=== PATIENT | male | born 1945 | race Caucasian/White ===

== ENCOUNTER 2018-11-13 11:02 | Emergency (ER) | payer MEDICARE ==
[~2018-11-13] VITALS: Ht 175.3 cm; Wt 81.6 kg
[~2018-11-13 11:02] MED LIST: ?BP MED; AMLO-79 PO; ASPI-587 PO; AZEL137S4 NS; AZIT-21 PO; CIPR-225 PO; DOXY100C2 PO; FLUT16SP22 NS; GLIP2.5T15 PO; MECL12.579 PO; MELO-198 PO; METF-380 PO; METH4TAB PO; OXYC-12 PO; PRD20T PO; SIMV10TA3 PO; SULF1TAB35 PO; TRIA16.5 NS; [UNRECOGNIZED DRUG - REMARK]; [UNRECOGNIZED DRUG - REMARK]
[2018-11-13 11:46] LABS: BASOPHILS % (AUTO) 1 % (0-10); EOSINOPHILS # (AUTO) 0.2 10^3/uL (0.0-0.3); EOSINOPHILS % (AUTO) 2 % (0-10); HEMATOCRIT 40 % (40-54); HEMOGLOBIN 14.4 G/DL (13.3-17.7); LYMPHOCYTES # (AUTO) 4.2 X 10^3 (1.0-4.0); LYMPHOCYTES % (AUTO) 48 % (12-44); MEAN CORPUSCULAR HEMOGLOBIN 32 PG (25-34); MEAN CORPUSCULAR HGB CONC 36 G/DL (32-36); MEAN CORPUSCULAR VOLUME 88 FL (80-99); MEAN PLATELET VOLUME 9.3 FL (7.4-10.4); MONOCYTES # (AUTO) 0.8 X 10^3 (0.0-1.0); MONOCYTES % (AUTO) 9 % (0-12); NEUTROPHILS # (AUTO) 3.7 X 10^3 (1.8-7.8); NEUTROPHILS % (AUTO) 41 % (42-75); PLATELET COUNT 219 10^3/uL (130-400); RED CELL DISTRIBUTION WIDTH 14.5 % (10.0-14.5); WHITE BLOOD COUNT 8.9 10^3/uL (4.3-11.0)
--- NOTE | 2018-11-13 11:47 | ED Respiratory ---
General Chief Complaint: Respiratory Problems Stated Complaint: SOB Nursing Triage Note: PT AMB TO [facility] WITH COMLPAINT OF SOA FOR SIX MONTHS. STATES HAS NOT TALKED TO PCP ABOUT SYMPTOMS. STATES TODAY HE BECAME TIRED OF IT AND DECIDED HE WANTED TO SEE WHAT WAS GOING. History of Present Illness Date Seen by Provider: Nov 13, 2018 Time Seen by Provider: 11:30 Initial Comments 73-year-old male reports shortness of breath for at least 6 months, no change today in his symptoms. He reports smoking from the age of approximately 18 until August 2018. He smoked anywhere from half a pack to 1 pack per day. He is continuing to be around secondhand smoke from his sister who lives in skilled nursing. He denies a history of COPD, emphysema or chronic bronchitis. He has no history of seasonal allergies. He is not on any inhalers. He denies any chest pain. His shortness of breath is only with exertion, he continues to exercise and do weight work daily. He performs all of his own ADLs with no assistance. He has never used oxygen. He has never discussed these symptoms with his primary care provider. He states that he can walk for approximately 5 minutes before becoming short of air, if he rests for a few moments his symptoms improve. Timing/Duration: intermittent Severity: mild Prior Episodes/Possible Cause: occasional episodes Modifying Factors: Improves With Rest Associated Symptoms: cough (nonproductive); No nasal congestion, No nasal drainage; shortness of breath; No sinus infection, No sore throat, No wheezing Allergies and Home Medications Allergies Coded Allergies: No Known Drug Allergies (Unverified , 04/03/12) Home Medications Amlodipine Besylate/Benazepril 1 Each Capsule, 1 EACH PO DAILY, (Reported) Aspirin 81 Mg Tablet.dr, 81 MG PO DAILY, (Reported) Ciprofloxacin HCl 500 Mg Tablet, 500 MG PO BID Prescribed by: LILI CARPIO on 01/07/151126 Meloxicam 7.5 Mg Tablet, 1 EACH PO BID, (Reported) Simvastatin 10 Mg Tablet, 10 MG PO DAILY, (Reported) Sulfamethoxazole/Trimethoprim 1 Each Tablet, 1 EACH PO BID Prescribed by: LILI CARPIO on 01/07/157 Patient Home Medication List Home Medication List Reviewed: Yes Review of Systems Review of Systems Constitutional: no symptoms reported, see HPI Respiratory: see HPI, cough, dyspnea on exertion; No hemoptysis, No orthopnea, No phlegm; short of breath; No stridor, No wheezing, No other All Other Systems Reviewed Negative Unless Noted: Yes Past Rieqkjg-Uohiep-Orjris Hx Past Med/Social Hx: Reviewed Nursing Past Med/Soc Hx Patient Social History Alcohol Use: Occasionally Uses Recreational Drug Use: No Smoking Status: Former Smoker Type Used: Cigarettes Former Smoker, Quit: Sep 06, 2018 Recent Foreign Travel: No Contact w/Someone Who Travel: No Recent Infectious Disease Expo: No Physical Abuse: No Sexual Abuse: No Mistreated: No Fear: No Immunizations Up To Date Tetanus Booster (TDap): Unknown Date of Pneumonia Vaccine: Jan 02, 2014 Date of Influenza Vaccine: Nov 28, 2014 Past Medical History Surgeries: Yes (PILONDIAL CYST FROM TAILBONE, BILAT CARPAL TUNNEL, CATARACTS) Eye Surgery, Orthopedic Respiratory: No Cardiac: Yes Hypertension Neurological: No Reproductive Disorders: No Gastrointestinal: No Musculoskeletal: No Endocrine: Yes Diabetes, Non-Insulin dep Cataract Cancer: No Psychosocial: No Integumentary: No Blood Disorders: No Physical Exam Vital Signs - First Documented 11/13/18 11:16 Temp 99.2 Pulse 92 Resp 16 B/P (MAP) 136/79 (98) Pulse Ox 98 O2 Delivery Room Air Capillary Refill : Less Than 3 Seconds Height: 5'9.00" Weight: 180lbs. oz. 81.379908uc; BMI Method:Stated General Appearance: WD/WN, no apparent distress Eyes: Bilateral Eye Normal Inspection, Bilateral Eye PERRL, Bilateral Eye EOMI HEENT: PERRL/EOMI, normal ENT inspection, TMs normal, pharynx normal Neck: non-tender, full range of motion, supple, normal inspection Respiratory: chest non-tender, lungs clear, normal breath sounds, no respiratory distress, no accessory muscle use Cardiovascular: normal peripheral pulses, regular rate, rhythm, no edema Gastrointestinal: normal bowel sounds, non tender, soft Neurologic/Psychiatric: no motor/sensory deficits, alert, normal mood/affect, oriented x 3 Skin: normal color, warm/dry Progress/Results/Core Measures Suspected Sepsis Recent Fever Within 48 Hours: No Infection Criteria Present: None New/Unexplained Altered Menta: No Sepsis Screen: No Definite Risk SIRS Temperature:99.2 Pulse: 92 Respiratory Rate: 16 Laboratory Tests 11/13/18 11:15: White Blood Count 8.9 Blood Pressure 136 /79 Mean: 98 Laboratory Tests 11/13/18 11:15: Creatinine 1.77H, Platelet Count 219, Total Bilirubin 0.6 Results/Orders Lab Results Laboratory Tests Test 11/13/18 11:15 Range/Units White Blood Count 8.9 4.3-11.0 10^3/uL Red Blood Count 4.57 4.35-5.85 10^6/uL Hemoglobin 14.4 13.3-17.7 G/DL Hematocrit 40 40-54 % Mean Corpuscular Volume 88 80-99 FL Mean Corpuscular Hemoglobin 32 25-34 PG Mean Corpuscular Hemoglobin Concent 36 32-36 G/DL Red Cell Distribution Width 14.5 10.0-14.5 % Platelet Count 219 130-400 10^3/uL Mean Platelet Volume 9.3 7.4-10.4 FL Neutrophils (%) (Auto) 41 L 42-75 % Lymphocytes (%) (Auto) 48 H 12-44 % Monocytes (%) (Auto) 9 0-12 % Eosinophils (%) (Auto) 2 0-10 % Basophils (%) (Auto) 1 0-10 % Neutrophils # (Auto) 3.7 1.8-7.8 X 10^3 Lymphocytes # (Auto) 4.2 H 1.0-4.0 X 10^3 Monocytes # (Auto) 0.8 0.0-1.0 X 10^3 Eosinophils # (Auto) 0.2 0.0-0.3 10^3/uL Basophils # (Auto) 0.0 0.0-0.1 10^3/uL Sodium Level 130 L 135-145 MMOL/L Potassium Level 3.7 3.6-5.0 MMOL/L Chloride Level 98 98-107 MMOL/L Carbon Dioxide Level 20 L 21-32 MMOL/L Anion Gap 12 5-14 MMOL/L Blood Urea Nitrogen 21 H 7-18 MG/DL Creatinine 1.77 H 0.60-1.30 MG/DL Estimat Glomerular Filtration Rate 38 BUN/Creatinine Ratio 12 Glucose Level 117 H 70-105 MG/DL Calcium Level 10.1 8.5-10.1 MG/DL Corrected Calcium 8.5-10.1 MG/DL Total Bilirubin 0.6 0.1-1.0 MG/DL Aspartate Amino Transf (AST/SGOT) 28 5-34 U/L Alanine Aminotransferase (ALT/SGPT) 46 0-55 U/L Alkaline Phosphatase 52 40-136 U/L Troponin I < 0.028 <0.028 NG/ML B-Type Natriuretic Peptide 10.4 <100.0 PG/ML Total Protein 7.7 6.4-8.2 GM/DL Albumin 4.7 H 3.2-4.5 GM/DL My Orders Orders - CHANNING GILMORE Chest Pa/Lat (2 View) (11/13/18 11:39) BNP (11/13/18 11:39) Cbc With Automated Diff (11/13/18 11:39) Comprehensive Metabolic Panel (11/13/18 11:39) Troponin I (11/13/18 11:53) Albuterol/Ipra Inhalation Soln (Duoneb I (11/13/18 12:15) Svn Small Volume Nebulizer (11/13/18 12:09) Medications Given in ED Current Medications Medications Dose Ordered Sig/Usman Route Start Time Stop Time Status Last Admin Dose Admin Albuterol/ Ipratropium 3 ml ONCE ONCE INH 11/13/18 12:15 11/13/18 12:16 DC 11/13/18 12:19 3 ML Vital Signs/I&O 11/13/18 11/13/18 11:16 12:20 Temp 99.2 Pulse 92 Resp 16 B/P (MAP) 136/79 (98) Pulse Ox 98 98 O2 Delivery Room Air Room Air Capillary Refill : Less Than 3 Seconds Blood Pressure Mean: 98 Progress Note : Time: 11:30 Progress Note Patient seen and evaluated, EKG completed, will get labs, breathing treatment, and chest x-ray. SaO2 95-96% on room air, while resting in bed. Was 98% after walking from waiting room to exam room. I did discuss at length that patient needs to follow up with PCP and if today's work up is negative, he may need to see PCP and get CT Chest with his longstanding history of smoking. Patient informed that CXR not diagnostic for Chest Cancer and he is at increased risk. 1220 labs and chest x-ray essentially normal. Patient noted no significant improvement with his breathing treatment, however he was not short of breath while resting in the bed. Discharge instructions and return precautions reviewed with him. All questions answered. ECG Initial ECG Impression Date: Nov 13, 2018 Initial ECG Impression Time: 11:23 Initial ECG Rate: 90 Initial ECG Rhythm: Normal Sinus Initial ECG Intervals: Normal Initial ECG Intervals TN 168, QRSD 90, QT 348, QTC 426. [place] P 7, QRS -19, T 113. Initial ECG Impression: Normal Initial ECG Comparisson: No Previous ECG Available Comment Reviewed with Dr. Bradshaw, agreed with interpretation. Diagnostic Imaging Diagonstic Imaging: Xray Plain Films/CT/US/NM/MRI: chest Comments NAME: KIM BILLINGS [facility] REC#: [id number] PT STATUS: REG ER : 1945 PHYSICIAN: CHANNING GILMORE ADMIT DATE: 11/13/18/ER Draft Date of Exam:11/13/18 CHEST PA/LAT (2 VIEW) INDICATION: Shortness of air. FINDINGS: The lungs are clear. The heart size and vascularity are normal. There is no effusion or pneumothorax. IMPRESSION: Normal two-view chest. Dictated on workstation # [id number] Dict: 11/13/18 1156 Trans: 11/13/18 1205 [id number] Interpreted by: JENNA ROBERTSON Electronically signed by: Reviewed: Reviewed by Me Departure Impression Primary Impression: Shortness of breath Additional Impression: Contact with and (suspected) exposure to environmental tobacco smoke (acute) (chronic) Disposition: 01 HOME, SELF-CARE Condition: Improved Departure-Patient Inst. Decision time for Depature: 12:25 Referrals: RHONDA LEÓN MD (PCP/Family) Primary Care Physician Patient Instructions: Shortness of Breath (Dyspnea) (DC) Add. Discharge Instructions: Continue with activities as tolerated. Use the inhaler 1-2 puffs up to every 4 hours, as needed for shortness of air or prior to activities. Wait 5 minutes between inhalations. Follow-up with your primary care provider if symptoms are not improving or worsen. Return to the emergency department for worsening of her shortness of air, chest pain, or any new urgent complaints. All discharge instructions reviewed with patient and/or family. Voiced understa nding. Scripts Albuterol Sulfate (VENTOLIN HFA) 1 Puff Puff 2 PUFF INH Q4H PRN for SHORTNESS OF BREATH, #1 INHALER 2 Refills 1 PUFF = 90 MCG Prov: CHANNING GILMORE 11/13/18 Copy Copies To 1: RHONDA LEÓN MD, AMY ARNP Nov 13, 2018 11:47
--- NOTE | 2018-11-13 12:05 | Diagnostic Imaging Report ---
INDICATION: Shortness of air. FINDINGS: The lungs are clear. The heart size and vascularity are normal. There is no effusion or pneumothorax. IMPRESSION: Normal two-view chest. Dictated by: Dictated on workstation # [id number]
[2018-11-13 12:07] LABS: ALANINE AMINOTRANSFERASE 46 U/L (0-55); ALBUMIN 4.7 GM/DL (3.2-4.5); ALKALINE PHOSPHATASE 52 U/L (40-136); BILIRUBIN,TOTAL 0.6 MG/DL (0.1-1.0); BUN/CREATININE RATIO 12; CALCIUM 10.1 MG/DL (8.5-10.1); CARBON DIOXIDE 20 MMOL/L (21-32); CHLORIDE 98 MMOL/L (98-107); CREATININE SERUM 1.77 MG/DL (0.60-1.30); GFR ESTIMATED 38; GLUCOSE 117 MG/DL (70-105); POTASSIUM 3.7 MMOL/L (3.6-5.0); SODIUM 130 MMOL/L (135-145); TOTAL PROTEIN 7.7 GM/DL (6.4-8.2)
[2018-11-13] MEDS ORDERED: RT-ALBUTEROL/IPRATROPIUM 3 ML (DUONEB) VIAL INH ONE (12:15)
[2018-11-13] MEDS ORDERED: RT-ALBUINH INH (12:36)
[2018-11-13 13:00] VITALS: BP 123/71
== END 2018-11-13 13:00 | disposition home or self-care (01) ==
LOC: EDUNIT# 11:02 → ER 11:04
DX: R06.02 Shortness of breath (principal); I10 Essential (primary) hypertension; E11.9 Type 2 diabetes mellitus without complications; Z77.22 Contact with and (suspected) exposure to environmental tobacco smoke (acute) (chronic); Z79.82 Long term (current) use of aspirin
CPT/HCPCS: 36415; 71046; 80053; 83880; 84484; 85025; 94640

== ENCOUNTER → 2019-04-04 | Outpatient (CLI) | payer MEDICARE ==
[~2019-04-04] MED LIST changes: +RT-ALBUINH INH
--- NOTE | 2019-04-04 12:48 | Diagnostic Imaging Report ---
CLINICAL INDICATION: Patient with chronic kidney disease, stage III, and type II diabetes. EXAM: Ultrasound of both kidneys. COMPARISON: None. FINDINGS: Rib shadow slightly obscures portions of the right kidney. Both kidneys are normal in size, shape, echogenicity and cortical thickness without hydronephrosis, stones, or focal lesions with the right and left kidneys measuring 10.3 cm and 9.6 cm in their craniocaudal dimensions, respectively. The bladder is minimally fluid filled with roughly 14 mL of fluid and 10 mL of fluid post void. No ureteral jets are noted. No gross bladder abnormality is visualized. IMPRESSION: 1: Unremarkable bilateral renal ultrasound. 2: Limited visualization of the bladder due to incomplete distention. Dictated by: Dictated on workstation # [id number]
== END ==
LOC: RAD 10:43
PROVIDERS: ATTEND Nurse Practitioner
DX: E11.21 Type 2 diabetes mellitus with diabetic nephropathy (principal); I12.9 Hypertensive chronic kidney disease with stage 1 through stage 4 chronic kidney disease, or unspecified chronic kidney disease; N18.3 Chronic kidney disease, stage 3 (moderate); E78.5 Hyperlipidemia, unspecified
CPT/HCPCS: 76770

== ENCOUNTER → 2020-01-03 | Outpatient (CLI) | payer MEDICARE ==
--- NOTE | 2020-01-03 14:51 | Diagnostic Imaging Report ---
PROCEDURE: CT chest without contrast. TECHNIQUE: Multiple contiguous axial images were obtained through the chest without the use of intravenous contrast. Auto Exposure Controls were utilized during the CT exam to meet ALARA standards for radiation dose reduction. DATE: January 03, 2020. COMPARISON: Chest radiographs November 13, 2018. INDICATION: 74-year-old male, shortness of breath on exertion for 6 months. PROCEDURE: Axial noncontrasted CT images of the chest. Noncontrasted limits the evaluation of the mediastinum and vascular structures. FINDINGS: There is a 4 mm benign calcified right lower lobe granuloma on axial image 119. There are calcified hilar lymph nodes also consistent with the sequela of prior granulomatous disease. There is a benign calcified left upper lobe granuloma subcentimeter in size. There is no identified noncalcified pulmonary nodule. There is no lung mass. There is no pneumothorax. There is no pleural effusion. The central airways are patent. There are coronary artery calcifications and additional areas of atherosclerotic disease. There is no pericardial effusion. There is no abnormally enlarged noncalcified mediastinal or axillary lymph node which meets CT size criteria for adenopathy. There is cholelithiasis without evidence of acute cholecystitis. There is a low-attenuation left adrenal nodule on axial image 177 measuring 2.0 cm in size with internal attenuation of 0 Hounsfield units diagnostic for an adrenal adenoma. There are degenerative changes of the spine. There is a lucent lesion of the T12 vertebral body measuring 14 mm in size on sagittal image 85 and axial image 138. There does appear to be some preserved internal trabecula. The patient is status post right sided rotator cuff tendon repair. IMPRESSION: 1. No identified acute cardiopulmonary abnormality. 2. Sequela of prior granulomatous disease. 3. 14 mm lucent lesion in the T12 vertebral body which potentially could relate to a hemangioma although is difficult to definitively diagnose. Recommend comparison with earlier prior cross-sectional imaging if available to assess for long-term stability. If long-term stability cannot be documented, further evaluation with MRI with and without intravenous contrast is recommended. 4. 2 cm benign left adrenal adenoma. Dictated by: Dictated on workstation # [id number]
== END ==
LOC: RAD 13:29
PROVIDERS: ATTEND Family Medicine
DX: I11.9 Hypertensive heart disease without heart failure (principal); R06.02 Shortness of breath; M89.9 Disorder of bone, unspecified; D35.02 Benign neoplasm of left adrenal gland; F17.200 Nicotine dependence, unspecified, uncomplicated
CPT/HCPCS: 71250; 93306

== ENCOUNTER 2021-04-21 10:41 | Emergency (ER) | payer MEDICARE ==
[~2021-04-21] VITALS: Ht 175 cm; Wt 82.0 kg
[~2021-04-21 10:41] MED LIST changes: -SULF1TAB35 PO; +SULF1TAB38 PO
[2021-04-21] MEDS ORDERED: ASPIRIN 81 MG CHEW (CHILDREN'S ASA) PO ONE (11:00)
[2021-04-21] MEDS ORDERED: dilTIAZem DRIP PRE-MIX 125 ML IV SCH (11:00)
--- NOTE | 2021-04-21 11:01 | ED Cardiac General ---
History of Present Illness General Chief Complaint: Cardiac/General Problems Stated Complaint: ABNORMAL EKG,SOB Source: patient Exam Limitations: no limitations (MANDEEP AMES APRN) History of Present Illness Date Seen by Provider: Apr 21, 2021 Time Seen by Provider: 10:58 Initial Comments to ER by private vehicle with reports of shortness of breath for quite a while. He feels "like someone jumps out in front of you and scares you". He was out at [facility] before this found to be in new onset A. fib RVR. He was referred to the emergency room. He does smoke cigarettes. He has chronic kidney disease, hypertension, hyperlipidemia, COPD but denies any personal history of coronary disease. He denies any chest pain Timing/Duration: constant, getting worse, changing over time Severity: moderate Activities at Onset: none NTG SL [place]: No ASA po [place]: No Associated Systoms: No Chest Pain (MANDEEP AMES APRN) Allergies and Home Medications Allergies Coded Allergies: No Known Drug Allergies (Unverified , 04/03/12) Patient Home Medication List Home Medication List Reviewed: Yes (MANDEEP AMES APRN) Albuterol Sulfate (Ventolin Hfa) 1 Puff Puff, 2 PUFF INH Q4H PRN for SHORTNESS OF BREATH Prescribed by: CHANNING GILMORE on 11/13/18 1236 Amlodipine Besylate/Benazepril (Amlodipine-Benazepril 10-40 Mg) 1 Each Capsule, 1 EACH PO DAILY, (Reported) Entered as Reported by: ANAI MONTAÑO on 04/04/14 0848 Aspirin (Aspir 81) 81 Mg Tablet.dr, 81 MG PO DAILY, (Reported) Entered as Reported by: FRANCO RO on 04/10/14 1037 Ciprofloxacin HCl (Cipro) 500 Mg Tablet, 500 MG PO BID Prescribed by: LILI CARPIO on 01/07/15 1127 Diltiazem HCl (Cardizem Cd) 240 Mg Cap.er.24h, 240 MG PO DAILY Prescribed by: MANDEEP AMES on 04/21/21 1218 Meloxicam (Meloxicam) 7.5 Mg Tablet, 1 EACH PO BID, (Reported) Entered as Reported by: ANAI MONTAÑO on 04/04/14 0848 Rivaroxaban (Xarelto) 15 Mg Tablet, 15 MG PO DAILY Prescribed by: MANDEEP AMES on 04/21/21 1218 Simvastatin (Simvastatin) 10 Mg Tablet, 10 MG PO DAILY, (Reported) Entered as Reported by: ANAI MONTAÑO on 04/04/14 0848 Sulfamethoxazole/Trimethoprim (Bactrim Ds Tablet) 1 Each Tablet, 1 EACH PO BID Prescribed by: LILI CARPIO on 01/07/15 1127 Review of Systems Review of Systems Constitutional: see HPI EENTM: No Symptoms Reported Respiratory: No Symptoms Reported Cardiovascular: See HPI; Denies Chest Pain; Irregular Heart Rate, Palpitations Gastrointestinal: See HPI Genitourinary: No Symptoms Reported Musculoskeletal: no symptoms reported Skin: no symptoms reported Psychiatric/Neurological: No Symptoms Reported Endocrine: No Symptoms Reported Hematologic/Lymphatic: No Symptoms Reported (MANDEEP AMES APRN) Past Rfbdyxh-Uvwxuj-Snayfb Hx Immunizations Up To Date Tetanus Booster (TDap): Unknown (MANDEEP AMES APRN) Past Medical History Surgeries: Yes (PILONDIAL CYST FROM TAILBONE, BILAT CARPAL TUNNEL, CATARACTS) Eye Surgery, Orthopedic Respiratory: No Cardiac: Yes Hypertension Neurological: No Reproductive Disorders: No Gastrointestinal: No Musculoskeletal: No Endocrine: Yes Diabetes, Non-Insulin dep Cataract Cancer: No Psychosocial: No Integumentary: No Blood Disorders: No (MANDEEP AMES APRN) Physical Exam Vital Signs Vital Signs - First Documented 04/21/21 10:50 Temp 36.4 Pulse 133 Resp 20 B/P (MAP) 150/92 (111) Pulse Ox 96 O2 Delivery Room Air (TYRA ARTEAGA MD) Vital Signs Capillary Refill : (MANDEEP AMES APRN) Height, Weight, BMI Height: 5'9.00" Weight: 180lbs. oz. 81.179938vk; BMI Method:Stated General Appearance: No Apparent Distress, WD/WN, Other (Alert and oriented no distress. Blood pressure is 150/90 2 part. Heart rate is 124 atrial fibrillation. Oxygen 98% room air.) Neck: Full Range of Motion, Normal Inspection Respiratory: No Accessory Muscle Use, No Respiratory Distress Cardiovascular: Normal Peripheral Pulses, Irregularly Irregular, Tachycardia Gastrointestinal: Non Tender, Soft Extremity: Normal Capillary Refill, Normal Inspection Neurologic/Psychiatric: Alert, Oriented x3 Skin: Normal Color, Warm/Dry (MANDEEP AMES APRN) Progress/Results/Core Measures Results/Orders Lab Results Laboratory Tests Test 04/21/21 11:00 04/21/21 13:57 Range/Units White Blood Count 9.1 4.3-11.0 10^3/uL Red Blood Count 5.11 4.30-5.52 10^6/uL Hemoglobin 16.2 13.3-17.7 g/dL Hematocrit 46 40-54 % Mean Corpuscular Volume 90 80-99 fL Mean Corpuscular Hemoglobin 32 25-34 pg Mean Corpuscular Hemoglobin Concent 35 32-36 g/dL Red Cell Distribution Width 13.3 10.0-14.5 % Platelet Count 216 130-400 10^3/uL Mean Platelet Volume 9.8 9.0-12.2 fL Immature Granulocyte % (Auto) 0 % Neutrophils (%) (Auto) 49 42-75 % Lymphocytes (%) (Auto) 43 12-44 % Monocytes (%) (Auto) 7 0-12 % Eosinophils (%) (Auto) 1 0-10 % Basophils (%) (Auto) 1 0-10 % Neutrophils # (Auto) 4.5 1.8-7.8 10^3/uL Lymphocytes # (Auto) 3.9 1.0-4.0 10^3/uL Monocytes # (Auto) 0.6 0.0-1.0 10^3/uL Eosinophils # (Auto) 0.1 0.0-0.3 10^3/uL Basophils # (Auto) 0.1 0.0-0.1 10^3/uL Immature Granulocyte # (Auto) 0.0 0.0-0.1 10^3/uL Prothrombin Time 13.8 12.2-14.7 SEC INR Comment 1.0 0.8-1.4 Activated Partial Thromboplast Time 30 24-35 SEC Sodium Level 128 L 135-145 MMOL/L Potassium Level 3.6 3.6-5.0 MMOL/L Chloride Level 93 L 98-107 MMOL/L Carbon Dioxide Level 18 L 21-32 MMOL/L Anion Gap 17 H 5-14 MMOL/L Blood Urea Nitrogen 22 H 7-18 MG/DL Creatinine 2.13 H 0.60-1.30 MG/DL Estimat Glomerular Filtration Rate 31 BUN/Creatinine Ratio 10 Glucose Level 483 *H 70-105 MG/DL Calcium Level 9.9 8.5-10.1 MG/DL Corrected Calcium 8.5-10.1 MG/DL Magnesium Level 1.9 1.6-2.4 MG/DL Total Bilirubin 0.8 0.1-1.0 MG/DL Aspartate Amino Transf (AST/SGOT) 17 5-34 U/L Alanine Aminotransferase (ALT/SGPT) 26 0-55 U/L Alkaline Phosphatase 59 40-136 U/L Myoglobin 97.4 H 10.0-92.0 NG/ML Troponin I < 0.028 <0.028 NG/ML B-Type Natriuretic Peptide 57.4 <100.0 PG/ML Total Protein 7.8 6.4-8.2 GM/DL Albumin 4.6 H 3.2-4.5 GM/DL Glucometer 246 H 70-110 MG/DL (TYRA ARTEAGA MD) Vital Signs/I&O 04/21/21 04/21/21 10:50 14:04 Temp 36.4 36.4 Pulse 133 98 Resp 20 20 B/P (MAP) 150/92 (111) 109/77 Pulse Ox 96 96 O2 Delivery Room Air Room Air 04/22/21 00:00 Intake Total 1000 ml Balance 1000 ml (TYRA ARTEAGA MD) Departure Communication (Admissions) EKG shows atrial fibrillation rate of [address] segment changes. Family Conversation 1208-discussed with the patient the need to stay for cardiology evaluation. He states usually he will sign out and go home. He does not want to stay. I discussed with him the risks of leaving including or permanent disability or stroke. Benefits of staying were discussed as well. He agrees to sign out. I will send him in some oral Cardizem at 240 mg a day since he is on Cardizem drip at 10 mg an hour and we will do some renal dosed Eliquis and have him follow-up with cardiology outpatient. NAME: KIM BILLINGS [facility] REC#: [id number] PT STATUS: REG ER : 1945 PHYSICIAN: MANDEEP AMES APRN ADMIT DATE: 04/21/21/ER Draft Date of Exam:04/21/21 CHEST 1 VIEW, AP/PA ONLY INDICATION: Atrial fibrillation. COMPARISON: None. FINDINGS: A single view of the chest demonstrates clear lungs bilaterally. The heart is normal. There is no pneumothorax. The osseous structures are normal. IMPRESSION: Negative chest. Dictated on workstation # [id number] Dict: 04/21/21 1125 Trans: 04/21/21 1127 [id number] Interpreted by: YARI SHEFFIELD Electronically signed by: (MANDEEP AMES APRN) Impression Primary Impression: Atrial fibrillation with rapid ventricular response Disposition: AGAINST MEDICAL ADVICE Condition: Against Medical Advice Departure-Patient Inst. Decision time for Depature: 12:13 (MANDEEP AMES APRN) Referrals: RHONDA LEÓN MD (PCP/Family) Primary Care Physician PETRA DELANEY MD, DAVID L JR, MD Patient Instructions: Atrial Fibrillation and Atrial Flutter ED Add. Discharge Instructions: 1. Take the blood thinner and the rate controlling medication as directed. Call the inclusion teacher of your choosing today to make an appointment to be seen. Also call Dr. León to make an appointment to be seen later this week. Return to ER for any chest pain or shortness of breath. Please note that we did recommend admission and you chose to sign out against advice. All discharge instructions reviewed with patient and/or family. Voiced understanding. Scripts Rivaroxaban (Xarelto) 15 Mg Tablet 15 MG PO DAILY, #30 TAB Prov: MANDEEP AMES APRN 04/21/21 Diltiazem HCl (Cardizem Cd) 240 Mg Cap.er.24h 240 MG PO DAILY, #30 CAP Prov: MANDEEP AMES APRN 04/21/21 ATTENDING PHYSICIAN NOTE: I was physically present as attending physician in the emergency department during the care of this patient, but I was not directly involved in the decision making or delivery of care for this patient. (TYRA ARTEAGA MD) MANDEEP AMES APRN Apr 21, 2021 11:01 TYRA ARTEAGA MD Apr 22, 2021 21:08
[2021-04-21 11:13] LABS: BASOPHILS # (AUTO) 0.1 10^3/uL (0.0-0.1); BASOPHILS % (AUTO) 1 % (0-10); EOSINOPHILS # (AUTO) 0.1 10^3/uL (0.0-0.3); EOSINOPHILS % (AUTO) 1 % (0-10); HEMATOCRIT 46 % (40-54); HEMOGLOBIN 16.2 g/dL (13.3-17.7); LYMPHOCYTES # (AUTO) 3.9 10^3/uL (1.0-4.0); LYMPHOCYTES % (AUTO) 43 % (12-44); MEAN CORPUSCULAR HEMOGLOBIN 32 pg (25-34); MEAN CORPUSCULAR HGB CONC 35 g/dL (32-36); MEAN CORPUSCULAR VOLUME 90 fL (80-99); MEAN PLATELET VOLUME 9.8 fL (9.0-12.2); MONOCYTES # (AUTO) 0.6 10^3/uL (0.0-1.0); MONOCYTES % (AUTO) 7 % (0-12); NEUTROPHILS # (AUTO) 4.5 10^3/uL (1.8-7.8); NEUTROPHILS % (AUTO) 49 % (42-75); PLATELET COUNT 216 10^3/uL (130-400); WHITE BLOOD COUNT 9.1 10^3/uL (4.3-11.0)
[2021-04-21 11:26] LABS: ALBUMIN 4.6 GM/DL (3.2-4.5); CHLORIDE 93 MMOL/L (98-107); POTASSIUM 3.6 MMOL/L (3.6-5.0); SODIUM 128 MMOL/L (135-145)
[2021-04-21 11:27] LABS: CALCIUM 9.9 MG/DL (8.5-10.1)
--- NOTE | 2021-04-21 11:27 | Diagnostic Imaging Report ---
INDICATION: Atrial fibrillation. COMPARISON: None. FINDINGS: A single view of the chest demonstrates clear lungs bilaterally. The heart is normal. There is no pneumothorax. The osseous structures are normal. IMPRESSION: Negative chest. Dictated by: Dictated on workstation # [id number]
[2021-04-21 11:28] LABS: TOTAL PROTEIN 7.8 GM/DL (6.4-8.2)
[2021-04-21 11:29] LABS: CARBON DIOXIDE 18 MMOL/L (21-32)
[2021-04-21 11:30] LABS: BILIRUBIN,TOTAL 0.8 MG/DL (0.1-1.0)
[2021-04-21 11:32] LABS: ALKALINE PHOSPHATASE 59 U/L (40-136); CREATININE SERUM 2.13 MG/DL (0.60-1.30); GFR ESTIMATED 31
[2021-04-21 11:33] LABS: BUN/CREATININE RATIO 10; GLUCOSE 483 MG/DL (70-105)
[2021-04-21 11:35] LABS: ALANINE AMINOTRANSFERASE 26 U/L (0-55); MAGNESIUM 1.9 MG/DL (1.6-2.4)
[2021-04-21 11:36] LABS: PROTHROMBIN TIME PATIENT 13.8 SEC (12.2-14.7)
[2021-04-21] MEDS ORDERED: LACTATED RINGERS 1,000 ML IV SCH (11:45)
[2021-04-21] MEDS ORDERED: inSUlin (REGULAR) HUMAN 1 UNIT/0.01 ML (CHARGE PER UNIT) SC SCH (11:45)
[2021-04-21] MEDS ORDERED: DILT240C86 PO (12:18)
[2021-04-21] MEDS ORDERED: RIVA15TA PO (12:18)
[2021-04-21] MEDS ORDERED: RIVAROXABAN 15 MG TABLET (XARELTO) PO ONE (12:30)
[2021-04-21 14:04] VITALS: BP 109/77
== END 2021-04-21 14:04 | disposition left against medical advice (07) ==
LOC: EDUNIT# 10:41 → ER 10:42
DX: I48.20 Chronic atrial fibrillation, unspecified (principal); I10 Essential (primary) hypertension; E11.9 Type 2 diabetes mellitus without complications; J44.9 Chronic obstructive pulmonary disease, unspecified; Z79.82 Long term (current) use of aspirin
CPT/HCPCS: 36415; 71045; 80053; 82947; 83735; 83874; 83880; 84484; 85025; 85610; 85730; 93005; 93041; 96374; 96375

== ENCOUNTER → 2021-06-11 | Outpatient (CLI) | payer MEDICARE ==
[~2021-06-11] MED LIST changes: +CATHETER FLUSH 10 ML SYR IVP PRN; +DILT240C86 PO; +REGADENOSON 0.4 MG/5 ML SYR (LEXISCAN) IV ONE; +RIVA15TA PO
[2021-06-11 11:04] VITALS: BP 136/80
--- NOTE | 2021-06-12 08:29 | NUCLEAR STRESS TEST ---
REGADENOSON NUCLEAR STRESS Date of procedure: 06/11/2021. Primary care provider: Fadumo Mcclain MD Admitting physician: Zakcary Blair Jr., MD. INDICATION: Paroxysmal atrial fibrillation. BASELINE ELECTROCARDIOGRAM: Atrial fibrillation with a ventricular rate of 131 bpm with low voltage in the precordial leads and nonspecific ST changes. STRESS TEST PROCEDURE: The patient was administered 0.4 mg of intravenous Regadenoson. The resting heart rate was 131 bpm and the peak heart rate was 153 bpm. The resting blood pressure was 136/80 mmHg and the minimum blood pressure was 119/68 mmHg. This represents a normal heart rate and a normal blood pressure response to Regadenoson with resting tachycardia. The test was stopped due to the protocol. The patient was in atrial fibrillation with occasional premature ventricular complexes versus aberrancy for the duration of the test. There were no arrhythmias during the test. There were no significant stress induced electrocardiogram changes. NUCLEAR PROCEDURE: The patient was administered 10 mCi of intravenous technetium 99m Tetrofosmin at rest for the rest images. The patient was subsequently administered 32.8 mCi of intravenous technetium 99m Tetrofosmin at peak stress for the stress images. Following an appropriate wait after each injection, imaging was obtained. The images were subsequently processed and reformatted in the usual views. Gated imaging was obtained. The image quality was adequate with a mild degree of gastrointestinal attenuation artifact. CT attenuation correction was used as a adjunct to standard imaging. Both the corrected and uncorrected images were reviewed for interpretation. NUCLEAR RESULTS: There was normal myocardial perfusion in all segments without evidence of infarction or ischemia. There was normal left ventricular chamber size with an end-diastolic volume of 40 mL and an end-systolic volume of 11 mL. There was no evidence of transient ischemic dilatation. The TID ratio was 1.02. There was normal wall motion in all segments with a calculated ejection fraction of 73%. IMPRESSION: 1. Normal heart rate and blood pressure response to regadenoson with resting tachycardia. 2. There was no chest discomfort or electrocardiogram changes during the test. 3. The patient was in atrial fibrillation with occasional premature ventricular complexes versus aberrancy for the duration of the test. 4. There was normal myocardial perfusion in all segments without evidence of infarction or ischemia. 5. There was normal wall motion in all segments with a calculated ejection fraction of 73%. Certain portions of this document may have been dictated utilizing voice recognition technology. Inherent to this technology, typographical and grammatical errors may exist. As much as I am diligent to identify and correct these mistakes, some errors may remain in the document. ZACKARY BLAIR JR, MD Jun 12, 2021 08:29
== END ==
LOC: CARD 08:49
PROVIDERS: ATTEND Internal Medicine Cardiovascular Disease
DX: I48.0 Paroxysmal atrial fibrillation (principal)
CPT/HCPCS: 78452; 93017; 93306; A9502

== ENCOUNTER → 2021-06-15 | Outpatient (CLI) | payer MEDICARE ==
[~2021-06-15] MED LIST changes: -CATHETER FLUSH 10 ML SYR IVP PRN; -REGADENOSON 0.4 MG/5 ML SYR (LEXISCAN) IV ONE
[2021-06-15 15:41] LABS: CREATININE SERUM 1.62 MG/DL (0.60-1.30); POTASSIUM 3.6 MMOL/L (3.6-5.0)
== END ==
LOC: RAD 15:00
PROVIDERS: ATTEND Internal Medicine Cardiovascular Disease
DX: I48.19 Other persistent atrial fibrillation (principal)
CPT/HCPCS: 36415; 80048

== ENCOUNTER 2021-06-18 08:48 | Day surgery (SDC) | payer MEDICARE ==
[~2021-06-18] VITALS: Ht 172.7 cm; Wt 79.2 kg
[2021-06-18] MEDS ORDERED: proPOfol 200 MG/20 ML (DIPRIVAN) VIAL IV ONE (08:56)
[2021-06-18] MEDS ORDERED: NS IV 1000 ML 1,000 ML ONE (08:56)
[2021-06-18] MEDS ORDERED: CATHETER FLUSH 10 ML SYR IV PRN (09:00)
[2021-06-18] MEDS ORDERED: NS IV 1000 ML 1,000 ML IV ONE (09:00)
[2021-06-18 09:10] VITALS: BP 131/83
[2021-06-18 09:39] VITALS: BP 127/85
[2021-06-18] MEDS ORDERED: MIDAZOLAM 2 MG/2 ML (VERSED) VIAL ONE (09:44)
[2021-06-18 09:50] VITALS: BP 102/62
[2021-06-18] MEDS ORDERED: METF-399 PO (09:50)
[2021-06-18] MEDS ORDERED: HYDR25TA4 PO (09:50)
[2021-06-18] MEDS ORDERED: RIVA15TA PO (09:50)
[2021-06-18] MEDS ORDERED: LISI5TAB20 PO (09:50)
[2021-06-18] MEDS ORDERED: SIMV10TA26 PO (09:50)
[2021-06-18] MEDS ORDERED: DILT240C91 PO (09:50)
[2021-06-18] MEDS ORDERED: GLIP10TA13 PO (09:50)
[2021-06-18] MEDS ORDERED: AMLO-251 PO (09:50)
--- NOTE | 2021-06-18 09:54 | Cardiac Procedure Note ---
Cardiology Procedures Date of Procedure 06/18/21 DIRECT-CURRENT CARDIOVERSION INDICATION: Persistent atrial fibrillation. PROCEDURE: After informed consent and in the fasting state, deep sedation was provided by the anesthesia department. I subsequently performed direct-current cardioversion with 1 synchronized biphasic shock at 100 J with conversion of atrial fibrillation to sinus rhythm. IMPRESSION: 1. Status post successful direct-current cardioversion with 1 synchronized biphasic shock at 100 J with conversion of atrial fibrillation to sinus rhythm. Certain portions of this document may have been dictated utilizing voice recognition technology. Inherent to this technology, typographical and grammatical errors may exist. As much as I am diligent to identify and correct these mistakes, some errors may remain in the document. JF SCHWAB JR, MD Jun 18, 2021 09:54
[2021-06-18 09:58] VITALS: BP 102/63
--- NOTE | 2021-06-18 10:00 | Anesthesia-General Post-Op ---
MAC Patient Condition Mental Status/LOC: Same as Preop Cardiovascular: Satisfactory Nausea/Vomiting: Absent Respiratory: Satisfactory Pain: Controlled Complications: Absent Post Op Complications Complications None Follow Up Care/Instructions Patient Instructions None needed. Anesthesiology Discharge Order Discharge Order Patient is doing well, no complaints, stable vital signs, no apparent adverse anesthesia problems. No complications reported per nursing. CYDNEY IYER CRNA Jun 18, 2021 10:00
[2021-06-18 10:05] VITALS: BP 108/72
[2021-06-18 10:19] VITALS: BP 112/74
== END 2021-06-18 10:22 | disposition home or self-care (01) ==
LOC: SDC 08:48 → CATH 10:22
PROVIDERS: ATTEND Internal Medicine Cardiovascular Disease
DX: I48.19 Other persistent atrial fibrillation (principal); I48.0 Paroxysmal atrial fibrillation; I10 Essential (primary) hypertension; E11.9 Type 2 diabetes mellitus without complications; I12.9 Hypertensive chronic kidney disease with stage 1 through stage 4 chronic kidney disease, or unspecified chronic kidney disease; E78.2 Mixed hyperlipidemia; E11.21 Type 2 diabetes mellitus with diabetic nephropathy; E66.3 Overweight; N18.32 Chronic kidney disease, stage 3b; Z87.891 Personal history of nicotine dependence; Z79.899 Other long term (current) drug therapy; Z79.01 Long term (current) use of anticoagulants; Z79.84 Long term (current) use of oral hypoglycemic drugs
CPT/HCPCS: 92960; 93005

== ENCOUNTER 2022-01-30 09:05 | Inpatient (IN) | payer MEDICARE, OTHER ==
[~2022-01-30] VITALS: Ht 175.3 cm; Wt 84.6 kg
[~2022-01-30 09:05] MED LIST changes: +AMLO-251 PO; +DILT240C91 PO; +GLIP10TA13 PO; +HYDR25TA4 PO; +LISI5TAB20 PO; +METF-399 PO; +SIMV10TA26 PO
--- NOTE | 2022-01-30 09:41 | ED General ---
General Chief Complaint: Oral/Throat Problems Stated Complaint: NAUSEA/HEADACHE/SORE THROAT/CHILLS Source of Information: Patient Exam Limitations: No Limitations History of Present Illness Date Seen by Provider: Jan 30, 2022 Time Seen by Provider: 09:28 Initial Comments 76-year-old male presents to the emergency department today for about a week of sore throat, dry mouth, runny nose and generally feeling unwell. He denies any sick contacts. He states he had a "fever in my throat and in my head." He did not actually check his temperature. He denies any chest pain. He has had a mil d dry cough. No real shortness of breath. No abdominal pain. No change in bowel or bladder habits. No urinary symptoms. Allergies and Home Medications Allergies Coded Allergies: No Known Drug Allergies (Unverified , 04/03/12) Patient Home Medication List Home Medication List Reviewed: Yes Amlodipine Besylate (Amlodipine Besylate) 10 Mg Tablet, 10 MG PO DAILY, (Reported) Entered as Reported by: IRIS GARCIA on 06/18/2150 Diltiazem HCl (Diltiazem 24Hr ER) 240 Mg Cap.er.24h, 240 MG PO DAILY, (Reported) Entered as Reported by: IRIS GARCIA on 06/18/2150 Glipizide (Glipizide) 10 Mg Tablet, 20 MG PO BID, (Reported) Entered as Reported by: IRIS GARCIA on 06/18/2150 Hydrochlorothiazide (Hydrochlorothiazide) 25 Mg Tablet, 25 MG PO DAILY, (Reported) Entered as Reported by: IRIS GARCIA on 06/18/2150 Lisinopril (Lisinopril) 5 Mg Tablet, 5 MG PO DAILY, (Reported) Entered as Reported by: IRIS GARCIA on 06/18/2150 Metformin HCl (Metformin HCl) 1,000 Mg Tablet, 1,000 MG PO DAILY, (Reported) Entered as Reported by: IRIS GARCIA on 06/18/2150 Rivaroxaban (Xarelto) 15 Mg Tablet, 15 MG PO W/ DINNER, (Reported) Entered as Reported by: IRIS GARCIA on 06/18/21 0950 Simvastatin (Simvastatin) 10 Mg Tablet, 10 MG PO HS, (Reported) Entered as Reported by: IRIS GARCIA on 06/18/21 0950 Review of Systems Review of Systems Constitutional: chills EENTM: nose congestion, throat pain Respiratory: cough Cardiovascular: no symptoms reported Gastrointestinal: no symptoms reported Genitourinary: no symptoms reported Musculoskeletal: no symptoms reported Skin: no symptoms reported Psychiatric/Neurological: No Symptoms Reported Hematologic/Lymphatic: No Symptoms Reported Immunological/Allergic: no symptoms reported Past Duyjfij-Insegf-Vubdvk Hx Patient Social History Tobacco Use?: No Use of E-Cig and/or Vaping dev: No Substance use?: No Alcohol Use?: No Immunizations Up To Date Tetanus Booster (TDap): Unknown Second COVID19 Vaccination Francis: 10/30/20 Past Medical History Surgeries: Yes (PILONDIAL CYST FROM TAILBONE, BILAT CARPAL TUNNEL, CATARACTS) Orthopedic Respiratory: No Cardiac: Yes Atrial Fibrillation, High Cholesterol, Hypertension Neurological: No Reproductive Disorders: No Gastrointestinal: No Musculoskeletal: No Endocrine: Yes Diabetes, Non-Insulin dep Cataract Cancer: No Psychosocial: No Integumentary: No Blood Disorders: No Family Medical History Reviewed Nursing Family Hx No Pertinent Family Hx Physical Exam Vital Signs Vital Signs - First Documented Capillary Refill : Height, Weight, BMI Height: 5'9.00" Weight: 180lbs. oz. [id number]; 26.55 BMI Method:Stated General Appearance: No Apparent Distress, WD/WN HEENT: PERRL/EOMI, TMs Normal, Normal ENT Inspection, Pharynx Normal Neck: Normal Inspection, Non Tender, Supple Respiratory: Chest Non Tender, Lungs Clear, Normal Breath Sounds, No Accessory Muscle Use, No Respiratory Distress Cardiovascular: No Edema, No Gallop, No JVD, No Murmur, Normal Peripheral Pulses, Irregularly Irregular, Tachycardia Gastrointestinal: Normal Bowel Sounds, No Organomegaly, No Pulsatile Mass, Non Tender, Soft Back: Normal Inspection, No Vertebral Tenderness Extremity: Normal Capillary Refill, Normal Inspection, Normal Range of Motion, Non Tender, No Calf Tenderness Neurologic/Psychiatric: Alert, Oriented x3, No Motor/Sensory Deficits, Normal 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, 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 Norm as Tested Skin: Normal Color, Warm/Dry Lymphatic: No Adenopathy Focused Exam Lactate Level 01/30/22 09:45: Lactic Acid Level 2.84*H Lactic Acid Level Laboratory Tests Test 01/30/22 09:45 Lactic Acid Level 2.84 MMOL/L (0.50-2.00) *H Progress/Results/Core Measures Suspected Sepsis SIRS Temperature: Pulse: Respiratory Rate: Laboratory Tests 01/30/22 09:45: White Blood Count 17.6H Blood Pressure / Mean: 01/30/22 09:45: Lactic Acid Level 2.84*H Laboratory Tests 01/30/22 09:45: Platelet Count 166, Total Bilirubin 1.0 Results/Orders Lab Results Laboratory Tests Test 01/30/22 09:45 01/30/22 09:46 01/30/22 09:57 01/30/22 10:59 Range/Units White Blood Count 17.6 H 4.3-11.0 10^3/uL Red Blood Count 4.73 4.30-5.52 10^6/uL Hemoglobin 14.8 13.3-17.7 g/dL Hematocrit 42 40-54 % Mean Corpuscular Volume 89 80-99 fL Mean Corpuscular Hemoglobin 31 25-34 pg Mean Corpuscular Hemoglobin Concent 35 32-36 g/dL Red Cell Distribution Width 13.7 10.0-14.5 % Platelet Count 166 130-400 10^3/uL Mean Platelet Volume 10.6 9.0-12.2 fL Immature Granulocyte % (Auto) 1 % Neutrophils (%) (Auto) 82 H 42-75 % Lymphocytes (%) (Auto) 12 12-44 % Monocytes (%) (Auto) 4 0-12 % Eosinophils (%) (Auto) 0 0-10 % Basophils (%) (Auto) 0 0-10 % Neutrophils # (Auto) 14.5 H 1.8-7.8 10^3/uL Lymphocytes # (Auto) 2.1 1.0-4.0 10^3/uL Monocytes # (Auto) 0.8 0.0-1.0 10^3/uL Eosinophils # (Auto) 0.0 0.0-0.3 10^3/uL Basophils # (Auto) 0.0 0.0-0.1 10^3/uL Immature Granulocyte # (Auto) 0.2 H 0.0-0.1 10^3/uL Neutrophils % (Manual) 79 % Lymphocytes % (Manual) 14 % Monocytes % (Manual) 7 % Eosinophils % (Manual) 0 % Basophils % (Manual) 0 % Band Neutrophils 0 % Blood Morphology Comment NORMAL Sodium Level 124 *L 135-145 MMOL/L Potassium Level 4.0 3.6-5.0 MMOL/L Chloride Level 89 L 98-107 MMOL/L Carbon Dioxide Level 10 L 21-32 MMOL/L Anion Gap 25 H 5-14 MMOL/L Blood Urea Nitrogen 37 H 7-18 MG/DL Creatinine 2.10 H 0.60-1.30 MG/DL Estimat Glomerular Filtration Rate 32 BUN/Creatinine Ratio 18 Glucose Level 568 *H 70-105 MG/DL Lactic Acid Level 2.84 *H 0.50-2.00 MMOL/L Calcium Level 9.9 8.5-10.1 MG/DL Corrected Calcium 10.1 8.5-10.1 MG/DL Total Bilirubin 1.0 0.1-1.0 MG/DL Aspartate Amino Transf (AST/SGOT) 20 5-34 U/L Alanine Aminotransferase (ALT/SGPT) 35 0-55 U/L Alkaline Phosphatase 135 40-136 U/L Troponin I < 0.028 <0.028 NG/ML Total Protein 7.5 6.4-8.2 GM/DL Albumin 3.7 3.2-4.5 GM/DL Influenza Type A (RT-PCR) Not Detected Not Detecte Influenza Type B (RT-PCR) Not Detected Not Detecte SARS-CoV-2 RNA (RT-PCR) Not Detected Not Detecte Group A Streptococcus Screen NEGATIVE NEGATIVE Glucometer 500 *H 70-110 MG/DL Micro Results Microbiology 01/30/22 Throat Culture - Preliminary, Resulted No Beta Strep isolated 01/30/22 Blood Culture - Preliminary, Resulted Gram Negative Ismael 01/30/22 Blood Culture - Preliminary, Resulted Gram Negative Ismael My Orders Orders - CINDY PASTRANA DO Comprehensive Metabolic Panel (01/30/22 09:36) Lactic Acid Analyzer (01/30/22 09:36) Troponin I [place] (01/30/22 09:36) Ekg Tracing (01/30/22 09:36) Iv/Invasive Line Insertion .IV INSERT (01/30/22 09:36) Cbc With Automated Diff (01/30/22 09:36) Ns Iv 500 Ml (Sodium Chloride 0.9%) (01/30/22 09:45) Covid 19 Inhouse Test (01/30/22 09:36) Influenza A And B By Pcr (01/30/22 09:36) Blood Culture (01/30/22 09:36) Urinalysis (01/30/22 09:36) Vital Signs Adult Sepsis Patie Q15M (01/30/22 09:36) Rapid Strep A Screen (01/30/22 09:41) Chest 1 View, Ap/Pa Only (01/30/22 10:10) Manual Differential (01/30/22 09:45) Insulin Regular Drip (Myxredlin 100 Unit (01/30/22 10:45) Ceftriaxone 1 Gm Pre-Mix (Rocephin 1 Gm (01/30/22 10:45) Ed Admission (Communication) (01/30/22 11:32) Vital Signs/I&O 01/30/22 01/30/22 09:28 09:28 Temp 36.1 Pulse 124 Resp 12 B/P (MAP) 117/73 (88) Pulse Ox 97 O2 Delivery Room Air Room Air Capillary Refill : Critical Care Note Critical Care Total Time (minutes) 60 Departure Communication (Admissions) Time/Spoke to Admitting Phy: 10:[address] Guajardo who requests single dose of Rocephin now and she will write acute care orders. He is on an insulin drip at this time. HR improved some with IVF. No obvious source of infection yet. BP stable. Admitted to ICU Impression Primary Impression: DKA (diabetic ketoacidosis) Qualified Codes: E08.10 - Diabetes mellitus due to underlying condition with ketoacidosis without coma Additional Impressions: Atrial fibrillation with RVR PINA (acute kidney injury) Disposition: ADMITTED INPATIENT Condition: Stable Admissions Decision to Admit Reason: Admit from ER (General) Decision to Admit/Date: Jan 31, 2022 Time/Decision to Admit Time: 10:45 Departure-Patient Inst. Referrals: RHONDA LEÓN MD (PCP/Family) Primary Care Physician CINDY PASTRANA DO Jan 30, 2022 09:41
[2022-01-30] MEDS: NS IV 500 ML 500 ML IV SCH ×2 (09:50→10:39)
[2022-01-30 09:58] LABS: BASOPHILS % (AUTO) 0 % (0-10); EOSINOPHILS % (AUTO) 0 % (0-10); HEMATOCRIT 42 % (40-54); HEMOGLOBIN 14.8 g/dL (13.3-17.7); LYMPHOCYTES # (AUTO) 2.1 10^3/uL (1.0-4.0); LYMPHOCYTES % (AUTO) 12 % (12-44); MEAN CORPUSCULAR HEMOGLOBIN 31 pg (25-34); MEAN CORPUSCULAR HGB CONC 35 g/dL (32-36); MEAN CORPUSCULAR VOLUME 89 fL (80-99); MEAN PLATELET VOLUME 10.6 fL (9.0-12.2); MONOCYTES # (AUTO) 0.8 10^3/uL (0.0-1.0); MONOCYTES % (AUTO) 4 % (0-12); NEUTROPHILS # (AUTO) 14.5 10^3/uL (1.8-7.8); NEUTROPHILS % (AUTO) 82 % (42-75); PLATELET COUNT 166 10^3/uL (130-400); WHITE BLOOD COUNT 17.6 10^3/uL (4.3-11.0)
[2022-01-30 10:09] LABS: ALBUMIN 3.7 GM/DL (3.2-4.5); CHLORIDE 89 MMOL/L (98-107)
[2022-01-30 10:11] LABS: CALCIUM 9.9 MG/DL (8.5-10.1)
[2022-01-30 10:12] LABS: TOTAL PROTEIN 7.5 GM/DL (6.4-8.2)
[2022-01-30 10:13] LABS: CARBON DIOXIDE 10 MMOL/L (21-32)
[2022-01-30 10:15] LABS: ALKALINE PHOSPHATASE 135 U/L (40-136); GFR ESTIMATED 32
[2022-01-30 10:16] LABS: BUN/CREATININE RATIO 18
[2022-01-30 10:18] LABS: ALANINE AMINOTRANSFERASE 35 U/L (0-55)
[2022-01-30 10:21] LABS: BAND NEUTROPHILS 0 %; LYMPHOCYTES % (MANUAL) 14 %; NEUTROPHILS % (MANUAL) 79 %
[2022-01-30 10:22] LABS: BASOPHILS % (MANUAL) 0 %; EOSINOPHILS % (MANUAL) 0 %; MONOCYTES % (MANUAL) 7 %; RBC MORPH NORMAL
[2022-01-30 10:26] LABS: GLUCOSE 568 MG/DL (70-105); SODIUM 124 MMOL/L (135-145)
[2022-01-30] MEDS ORDERED: cefTRIAXone 1 GM PRE-MIX 50 ML IV ONE (10:45)
--- NOTE | 2022-01-30 10:53 | Diagnostic Imaging Report ---
CHEST 1 VIEW, AP/PA ONLY Indication: Cough and tachycardia Comparison: 04/21/2021 Findings: No focal airspace disease in the visualized lungs. No pleural effusion or pneumothorax. Normal cardiomediastinal silhouette. Impression: 1. No acute cardiopulmonary process by portable radiography. Dictated by: Dictated on workstation # [id number]
--- NOTE | 2022-01-30 11:24 | Consultation-Cardiology ---
HPI-Cardiology Cardiology Consultation: Date of Consultation 01/30/22 Date of Admission 01/30/22 Attending Physician Fadumo Mcclain MD Admitting Physician Admitting Physician: Attending Physician: Consulting Physician JF SCHWAB JR, MD HPI: Time Seen by a Provider: 11:19 Chief Complaint: REASON FOR CONSULTATION: Atrial fibrillation. Had the pleasure of seeing Toño in the emergency room at [facility] in [place], [place] this morning. He is known to me from the office. 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 For the past week he has had a sore throat, general malaise, myalgias, fevers, and chills. He has also had dyspnea on exertion. He did not seek medical attention. The symptoms persisted and became worse over the past few days. Because of the sore throat, he has not been able to drink much liquids or eat because of the pain. This morning, he felt so poorly that he came to the emergency room for further evaluation. He did not take his diltiazem this morning because he was in a [place] to come to the hospital. He was found to be in atrial fibrillation with a rapid ventricular rate and a cardiology consultation was requested. He denies chest pain, paroxysmal nocturnal dyspnea, orthopnea, palpitations, lightheadedness, syncope, or ankle edema. He has had some slight nausea but denies any vomiting or abdominal pain. Certain portions of this document may have been dictated utilizing voice recognition technology. Inherent to this technology, typographical and grammatical errors may exist. As much as I am diligent to identify and correct these mistakes, some errors may remain in the document. Review of Systems-Cardiology Review of Systems Other comments Review of 10 organ systems is as per the history of present illness, otherwise negative. CAF-Xfootc-Wkxoxc Hx Patient Social History Marrital Status: single Smoking Status: Former Smoker Have you traveled recently?: No Alcohol Use?: No Pt feels they are or have been: No Immunizations Up To Date Tetanus Booster (TDap): Unknown Date of Pneumonia Vaccine: Jan 02, 2014 Date of Influenza Vaccine: Nov 28, 2014 Past Medical History PMH As described under Assessment. Family Medical History Family Medical History: His father had a myocardial infarction at the age of 64. Allergies and Home Medications Allergies Coded Allergies: No Known Drug Allergies (Unverified , 04/03/12) Patient Home Medication List Home Medication List Reviewed: Yes Amlodipine Besylate (Amlodipine Besylate) 10 Mg Tablet, 10 MG PO DAILY, (Repor sheeba) Entered as Reported by: IRIS GARCIA on 06/18/21949 Diltiazem HCl (Diltiazem 24Hr ER) 240 Mg Cap.er.24h, 240 MG PO DAILY, (Reported) Entered as Reported by: IRIS GARCIA on 06/18/21949 Glipizide (Glipizide) 10 Mg Tablet, 20 MG PO BID, (Reported) Entered as Reported by: IRIS GARCIA on 06/18/21949 Hydrochlorothiazide (Hydrochlorothiazide) 25 Mg Tablet, 25 MG PO DAILY, (Reported) Entered as Reported by: IRIS GARCIA on 06/18/2150 Lisinopril (Lisinopril) 5 Mg Tablet, 5 MG PO DAILY, (Reported) Entered as Reported by: IRIS GARCIA on 06/18/2150 Metformin HCl (Metformin HCl) 1,000 Mg Tablet, 1,000 MG PO DAILY, (Reported) Entered as Reported by: IRIS GARCIA on 06/18/2150 Rivaroxaban (Xarelto) 15 Mg Tablet, 15 MG PO W/ DINNER, (Reported) Entered as Reported by: IRIS GARCIA on 06/18/2150 Simvastatin (Simvastatin) 10 Mg Tablet, 10 MG PO HS, (Reported) Entered as Reported by: IRIS GARCIA on 06/18/21949 Exam Vital Signs Vital Signs Date Time Temp Pulse Resp B/P (MAP) Pulse Ox O2 Delivery O2 Flow Rate FiO2 01/30/22 09:28 Room Air 01/30/22 09:28 36.1 124 12 117/73 (88) 97 Physical Exam General: Alert. No acute distress. Well nourished and appears stated age. Eye: Extraocular movements are intact. Conjunctivae are clear. There are no xanthelasma. HENT: Normocephalic. Atraumatic. Carotid pulsations 2/2 without bruits. Neck: Jugular venous pressure does not appear elevated. No thyromegaly appreciated. Respiratory: Lungs are clear to auscultation. Respirations are non-labored. Breath sounds are equal. Symmetrical chest wall expansion. Cardiovascular: Tachycardia with irregular rhythm. No murmur. No gallop. Point of maximal impulse is not appear displaced. Good pulses equal in all extremities. No edema. Gastrointestinal: Soft. Normal bowel sounds. Skin: Skin turgor is normal. There is no pallor. Musculoskeletal: No kyphosis or scoliosis appreciated. Neurologic: Alert and oriented to person, place, time. Cranial nerves 3-12 appear grossly intact. The patient has good motor tone strength in the upper and lower extremities bilaterally. Psychiatric: Cooperative. Appropriate mood & affect. Labs Laboratory Tests Test 01/30/22 09:45 01/30/22 09:57 01/30/22 10:59 Range/Units White Blood Count 17.6 H 4.3-11.0 10^3/uL Red Blood Count 4.73 4.30-5.52 10^6/uL Hemoglobin 14.8 13.3-17.7 g/dL Hematocrit 42 40-54 % Mean Corpuscular Volume 89 80-99 fL Mean Corpuscular Hemoglobin 31 25-34 pg Mean Corpuscular Hemoglobin Concent 35 32-36 g/dL Red Cell Distribution Width 13.7 10.0-14.5 % Platelet Count 166 130-400 10^3/uL Mean Platelet Volume 10.6 9.0-12.2 fL Immature Granulocyte % (Auto) 1 % Neutrophils (%) (Auto) 82 H 42-75 % Lymphocytes (%) (Auto) 12 12-44 % Monocytes (%) (Auto) 4 0-12 % Eosinophils (%) (Auto) 0 0-10 % Basophils (%) (Auto) 0 0-10 % Neutrophils # (Auto) 14.5 H 1.8-7.8 10^3/uL Lymphocytes # (Auto) 2.1 1.0-4.0 10^3/uL Monocytes # (Auto) 0.8 0.0-1.0 10^3/uL Eosinophils # (Auto) 0.0 0.0-0.3 10^3/uL Basophils # (Auto) 0.0 0.0-0.1 10^3/uL Immature Granulocyte # (Auto) 0.2 H 0.0-0.1 10^3/uL Neutrophils % (Manual) 79 % Lymphocytes % (Manual) 14 % Monocytes % (Manual) 7 % Eosinophils % (Manual) 0 % Basophils % (Manual) 0 % Band Neutrophils 0 % Blood Morphology Comment NORMAL Sodium Level 124 *L 135-145 MMOL/L Potassium Level 4.0 3.6-5.0 MMOL/L Chloride Level 89 L 98-107 MMOL/L Carbon Dioxide Level 10 L 21-32 MMOL/L Anion Gap 25 H 5-14 MMOL/L Blood Urea Nitrogen 37 H 7-18 MG/DL Creatinine 2.10 H 0.60-1.30 MG/DL Estimat Glomerular Filtration Rate 32 BUN/Creatinine Ratio 18 Glucose Level 568 *H 70-105 MG/DL Lactic Acid Level 2.84 *H 0.50-2.00 MMOL/L Calcium Level 9.9 8.5-10.1 MG/DL Corrected Calcium 10.1 8.5-10.1 MG/DL Total Bilirubin 1.0 0.1-1.0 MG/DL Aspartate Amino Transf (AST/SGOT) 20 5-34 U/L Alanine Aminotransferase (ALT/SGPT) 35 0-55 U/L Alkaline Phosphatase 135 40-136 U/L Troponin I < 0.028 <0.028 NG/ML Total Protein 7.5 6.4-8.2 GM/DL Albumin 3.7 3.2-4.5 GM/DL Influenza Type A (RT-PCR) Not Detected Not Detecte Influenza Type B (RT-PCR) Not Detected Not Detecte SARS-CoV-2 RNA (RT-PCR) Not Detected Not Detecte Group A Streptococcus Screen NEGATIVE NEGATIVE Glucometer 500 *H 70-110 MG/DL Radiology ELECTROCARDIOGRAM (07/21/2021): Atrial fibrillation/flutter with a ventricular rate of 98 bpm with low voltage in the precordial leads and nonspecific ST-T wave changes. CARDIOVERSION (06/18/2021): 1. Status post successful direct-current cardioversion with 1 synchronized biphasic shock at 100 J with conversion of atrial fibrillation to sinus rhythm. LABS (06/15/2021): Sodium 137. Potassium 3.6. BUN 24. Creatinine 1.62. GFR 43. Glucose 209. ECHOCARDIOGRAM (06/11/2021): 1. This is a technically difficult study due to poor image quality in the apical views. 2. Normal left ventricular chamber size with mild concentric hypertrophy. Normal left ventricular systolic function with an estimated ejection fraction of 55-60% with no regional wall motion abnormalities identified in the parasternal views. 3. The left ventricular diastolic parameters are normal. 4. The inferior vena cava is dilated but with normal respiratory variation which is consistent with mildly elevated right atrial pressure (8 mmHg). 5. The pulmonary artery pressure cannot be estimated on this study due to inadequate tricuspid regurgitant envelope. REGADENOSON NUCLEAR STRESS TEST (06/11/2021): 1. Normal heart rate and blood pressure response to regadenoson with resting tachycardia. 2. There was no chest discomfort or electrocardiogram changes during the test. 3. The patient was in atrial fibrillation with occasional premature ventricular complexes versus aberrancy for the duration of the test. 4. There was normal myocardial perfusion in all segments without evidence of infarction or ischemia. 5. There was normal wall motion in all segments with a calculated ejection fraction of 73%. ELECTROCARDIOGRAM (05/22/2021): Atrial fibrillation with a ventricular rate of 148 bpm with diffuse, nonspecific ST-T wave changes. LABS (04/29/2021): TSH 3.48. SINGLE VIEW CHEST X-RAY (04/21/2021): 1. Negative chest. LABS (04/21/2021): Sodium 128. Potassium 3.6. BUN 22. Creatinine 2.13. GFR 31. Glucose 483. Liver function tests normal. Hemoglobin 16.2. Platelets 216,000. Troponin undetectable. BNP 57.4 (normal). ELECTROCARDIOGRAM (04/21/2021): Atrial fibrillation with a ventricular rate of [address]-T wave changes. LABS (09/03/2020): Total cholesterol 144. Triglycerides 175. HDL 48. LDL 71. Glucose 126. BUN 13. Creatinine 1.63. GFR 40. Sodium 134. Potassium 4.8. Liver function tests normal. Hemoglobin 14.2. Platelets 207,000. ECG Impression ECG Comment Atrial fibrillation with a ventricular rate of 140 bpm with left anterior hemiblock and nonspecific ST-T wave changes. Diagnosis/Problems Diagnosis/Problems (1) Permanent atrial fibrillation Assessment & Plan: He underwent a previous cardioversion but then when he returned to the office, he was in atrial fibrillation with a controlled ventricular rate on diltiazem. He seems to be asymptomatic with the atrial fibrillation. He has been on rivaroxaban for stroke prophylaxis but at the renal adjusted dose. He is now in atrial fibrillation with a rapid ventricular rate, most likely due to not taking his diltiazem this morning. I will give him 1 dose of short acting diltiazem and resume his diltiazem CD when he is admitted. He should be placed back on his rivaroxaban for stroke prophylaxis. (2) Primary hypertension Assessment & Plan: He is currently normotensive and did not take any of his antihypertensive medication at home this morning. For the time being, I will just give him diltiazem. I would hold his other antihypertensive medication until we see how he does with his possible infection and hyperosmolar state. (3) Mixed hyperlipidemia Assessment & Plan: Continue statin medication. (4) Acute kidney injury superimposed on chronic kidney disease Assessment & Plan: He has had a jump in his creatinine, most likely due to dehydration. He will need intravenous fluids which will be managed by the hospitalist. (5) Type 2 diabetes mellitus with complication Assessment & Plan: This is being managed by the hospitalist. He is currently on an insulin infusion. JF SCHWAB JR, MD Jan 30, 2022 11:24
[2022-01-30] MEDS ORDERED: HYDROmorphone 2 MG/ML VIAL (DILAUDID) IV PRN (11:30)
[2022-01-30] MEDS ORDERED: diphenhydrAMINE 25 MG TAB (BENADRYL) PO PRN (11:30)
[2022-01-30] MEDS ORDERED: MELATONIN 3 MG TABLET PO PRN (11:30)
[2022-01-30] MEDS ORDERED: CALCIUM CARBONATE 500 MG (TUMS) TAB.CHEW PO PRN (11:30)
[2022-01-30] MEDS ORDERED: BISACODYL 10 MG SUPP (DULCOLAX) PR PRN (11:30)
[2022-01-30] MEDS ORDERED: ONDANSETRON 4 MG (ZOFRAN) ORAL DISSOLVE TAB PO PRN (11:30)
[2022-01-30] MEDS ORDERED: NS IV 1000 ML 1,000 ML IV SCH (11:30)
[2022-01-30] MEDS ORDERED: LACTULOSE SYRUP 10GM/15ML (ENULOSE) 30ML UDC PO PRN (11:30)
[2022-01-30] MEDS ORDERED: polyethylene glycoL POWDER 17 GM (MIRALAX) PACK PO PRN (11:30)
[2022-01-30] MEDS ORDERED: diphenhydrAMINE 50 MG/ML INJ (BENADRYL) IVP PRN (11:30)
[2022-01-30] MEDS ORDERED: ONDANSETRON 4 MG/2 ML (SDV) Z0FRAN IV PRN (11:30)
[2022-01-30] MEDS ORDERED: MILK OF MAGNESIA 400 MG/5 ML 30 ML UDC PO PRN (11:30)
[2022-01-30] MEDS ORDERED: NS IV 500 ML 500 ML IV PRN (11:30)
[2022-01-30] MEDS ORDERED: ANTACID SUSP 30 ML UDC (MYLANTA) PO PRN (11:30)
[2022-01-30] MEDS ORDERED: ACETAMINOPHEN 325 MG TABLET PO PRN (11:30)
[2022-01-30 12:11] VITALS: BP 117/73
--- NOTE | 2022-01-30 12:24 | Tele-ICU Progress Note ---
Subjective Date Seen by a Provider: Jan 30, 2022 Subjective/Events-last exam This virtual visit was conducted using real time audio/video. PMH:Afib, htn, HL, DM SH: smoking history: former. FH:CAD ROS: as in HPI. PE: VSS x HR. O2 sat 97% on RA HEENT: No obvious masses, adenopathy or JVD. Chest: clear to auscultation. CV: Irreg 120-130/min.S1 S2 No murmur or added sounds. Abd: Non-tender. Bowel sounds Y. : Unremarkable. Cooper N. USER INTERFACE DESIGNER/psychiatric: Grossly intact. No obvious focal findings. Extremities: No edema. Capillary refill < 3 seconds. Skin: unremarkable. Results: Elevated WCC 17.6, AG 25, Lact 2.84, BUN 37, Creat 2.1, BG 568. Decreased Na 124. CXR: Clear luque. Available chart/ vitals / labs / images reviewed. Video assessment done using teleICU camera, rest of exam as per RN. A/P: Critical Care: critically ill patient. Cont. IV insulin, abx, PO card., Xarelto. Discussed with RN Harika. Asked RN to reach out to eICU if any questions or concerns later. Time spent with patient/coordination of care with other health professionals (mins): 25 Sepsis Event Evaluation Height, Weight, BMI Height: 5'9.00" Weight: 180lbs. oz. 81.868926ce; 26.00 BMI Method:Stated Focused Exam Lactate Level 01/30/22 09:45: Lactic Acid Level 2.84*H Lactic Acid Level Laboratory Tests Test 01/30/22 09:45 Lactic Acid Level 2.84 MMOL/L (0.50-2.00) *H Exam Exam Patient acknowledged, consented, and participated in this virtual visit which was conducted using real time audio/video Vital Signs Date Time Temp Pulse Resp B/P (MAP) Pulse Ox O2 Delivery O2 Flow Rate FiO2 01/30/22 09:28 Room Air 01/30/22 09:28 36.1 124 12 117/73 (88) 97 Room Air Height & Weight Height: 5'9.00" Weight: 180lbs. oz. 81.158139fg; 26.00 BMI Method:Stated General Appearance: No Apparent Distress, WD/WN HEENT: PERRL/EOMI, TMs Normal, Normal ENT Inspection, Pharynx Normal Neck: Normal Inspection, Non Tender, Supple Respiratory: Chest Non Tender, Lungs Clear, Normal Breath Sounds, No Accessory Muscle Use, No Respiratory Distress Cardiovascular: No Edema, No Gallop, No JVD, No Murmur, Normal Peripheral Pulses, Irregularly Irregular, Tachycardia Capillary Refill: Less Than 3 Seconds Extremity: Normal Capillary Refill, Normal Inspection, Normal Range of Motion, Non Tender, No Calf Tenderness Neurologic/Psychiatric: Alert, Oriented x3, No Motor/Sensory Deficits, Normal 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
[2022-01-30] MEDS: 1/2 NS IV SOLUTION 1,000 ML IV SCH ×3 (12:36→20:02)
[2022-01-30] MEDS: POTASSIUM CL 10MEQ/50ML IVPB 50 ML IV SCH ×9 (12:36→21:00)
[2022-01-30 12:39] LABS: POTASSIUM 3.7 MMOL/L (3.6-5.0)
[2022-01-30 12:40] LABS: CALCIUM 9.6 MG/DL (8.5-10.1)
[2022-01-30 12:45] LABS: CREATININE SERUM 2.09 MG/DL (0.60-1.30)
--- NOTE | 2022-01-30 12:46 | History & Physical-Hospitalist ---
History of Present Illness HPI/Chief Complaint Chief complaint: DKA with A. fib with RVR HPI: This is a 76-year-old male clinic patient of Dr. Mcclain who has a recent 3- month history of hyperglycemia unresolved with oral hypoglycemic medication who presented to the ER with weakness palpitations and was found to have DKA and A. fib with RVR. Patient overall feels weak but his sister reports he looks better than when he was admitted. Cardiology will be consulted. DKA protocol will be followed. Scot brizuela initiated. Source: patient, family Exam Limitations: no limitations Date Seen 01/30/22 Time Seen by a Provider: 12:45 Attending Physician Fadumo Mcclain MD PCP Admitting Physician: Lakesha Guajardo DO Attending Physician: Lakesha Guajardo DO Referring Physician Date of Admission Jan 30, 2022 at 11:33 Home Medications & Allergies Home Medications Reviewed patient Home Medication Reconciliation performed by pharmacy medication reconciliations heating technician and/or nursing. Patients Allergies have been reviewed. Allergies Allergies Coded Allergies No Known Drug Allergies (Unverified04/03/12) Past Dthftpm-Woryeg-Ktyiwn Hx Patient Social History Marrital Status: single Employed/Student: retired Tobacco Use?: No Smoking Status: Former Smoker Use of E-Cig and/or Vaping dev: No Substance use?: No Alcohol Use?: No Pt feels they are or have been: No Immunizations Up To Date Date of Influenza Vaccine: Nov 28, 2014 First/Initial COVID19 Vaccinat: 10/30/20 Second COVID19 Vaccination Francis: 2020 Tetanus Booster (TDap): Unknown Date of Pneumonia Vaccine: Jan 02, 2014 Current Status Advance Directives: No Communicates: Verbally Primary Language: Mongolian Preferred Spoken Language: Mongolian Is interpretation needed?: No Sensory deficits: Hearing impairment Past Medical History Surgeries: Orthopedic Atrial Fibrillation, High Cholesterol, Hypertension Diabetes, Non-Insulin dep Cataract Blood Disorders: No Family Medical History Reviewed Nursing Family Hx No Pertinent Family Hx Review of Systems Constitutional: see HPI, malaise, weakness EENTM: no symptoms reported Respiratory: cough, short of breath Cardiovascular: palpitations Gastrointestinal: no symptoms reported Genitourinary: no symptoms reported Musculoskeletal: no symptoms reported Skin: no symptoms reported Psychiatric/Neurological: No Symptoms Reported All Other Systems Reviewed Negative Unless Noted: Yes Physical Exam Physical Exam Vital Signs Vital Signs - First Documented 01/30/22 12:11 FiO2 21 Capillary Refill : Less Than 3 Seconds Height, Weight, BMI Height: 5'9.00" Weight: 180lbs. oz. 81.751193yx; 26.00 BMI Method:Stated General Appearance: No Apparent Distress, Chronically ill Eyes: Right Eye Normal Inspection, Right Eye PERRL HEENT: PERRL/EOMI, Normal ENT Inspection, Pharynx Normal, Moist Mucous Membranes Neck: Full Range of Motion, Normal Inspection, Non Tender Respiratory: Chest Non Tender, Lungs Clear, Normal Breath Sounds, No Accessory Muscle Use, No Respiratory Distress Cardiovascular: No Edema, No Gallop, No JVD, No Murmur, Normal Peripheral Pulses, Irregularly Irregular, Tachycardia Gastrointestinal: Normal Bowel Sounds, No Organomegaly, No Pulsatile Mass, Non Tender, Soft Back: Normal Inspection, No CVA Tenderness, No Vertebral Tenderness Extremity: Normal Capillary Refill, Normal Inspection, Normal Range of Motion, Non Tender, No Calf Tenderness, No Pedal Edema Neurologic/Psychiatric: Alert, Oriented x3, No Motor/Sensory Deficits, 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 Assessment/Plan Admission Diagnosis Assessment: DKA new onset A. fib with RVR Subjective fever with suspicion of pneumonia Sepsis Lactic acidosis likely from Metformin Known history of atrial fibrillation Acute kidney injury Dehydration Plan: DKA protocol Cardiology consult Cardizem drip IV fluids IV antibiotics empirically Admission Status: Inpatient Order (span 2 midnights) Reason for Inpatient Admission: DKA wtih AF RVR Diagnosis/Problems Diagnosis/Problems (1) Atrial fibrillation with rapid ventricular response Status: Acute (2) DKA (diabetic ketoacidosis) Status: Acute Qualifiers: Diabetes mellitus type: due to underlying condition Diabetes mellitus complication detail: without coma Qualified Codes: E08.10 - Diabetes mellitus due to underlying condition with ketoacidosis without coma (3) Mixed hyperlipidemia (4) Primary hypertension (5) Permanent atrial fibrillation (6) Sepsis (7) Pneumonia LAKESHA GUAJARDO DO Jan 30, 2022 12:46
[2022-01-30] MEDS ORDERED: RT-ALBUTEROL/IPRATROPIUM 3 ML (DUONEB) VIAL INH PRN (13:00)
[2022-01-30] MEDS: NOREPINEPHRINE 8 MG/250 ML 250 ML IV SCH (14:36)
[2022-01-30] MEDS: ALPRAZolam 0.5 MG (XANAX) TAB PO SCH ×3 (14:36→20:02)
[2022-01-30] MEDS: RIVAROXABAN 15 MG TABLET (XARELTO) PO SCH (16:01)
[2022-01-30 17:21] LABS: BILIRUBIN,URINE NEGATIVE (NEGATIVE); CLARITY,URINE CLEAR; COLOR,URINE YELLOW; GLUCOSE, URINE (UA) NEGATIVE (NEGATIVE); KETONES,URINE NEGATIVE (NEGATIVE); LEUKOCYTE ESTERASE ,URINE NEGATIVE (NEGATIVE); NITRITE,URINE NEGATIVE (NEGATIVE); PROTEIN,URINE 1+ (NEGATIVE)
[2022-01-30 17:34] LABS: BACTERIA,URINE NEGATIVE /HPF
[2022-01-30] MEDS: D5 1/2 NS 1000 ML IV SOLUTION 1,000 ML IV SCH ×2 (17:49→20:01)
[2022-01-30 17:56] LABS: POTASSIUM 4.6 MMOL/L (3.6-5.0)
[2022-01-30 17:57] LABS: CALCIUM 8.6 MG/DL (8.5-10.1)
[2022-01-30 18:01] LABS: CREATININE SERUM 1.53 MG/DL (0.60-1.30)
[2022-01-30] MEDS: SENNOSIDES 8.6 MG (SENOKOT) TAB PO SCH (20:02)
[2022-01-30] MEDS: DOCUSATE SODIUM 100 MG (COLACE) CAP PO SCH (20:02)
[2022-01-30] MEDS: RT-ALBUTEROL/IPRATROPIUM 3 ML (DUONEB) VIAL INH SCH (21:31)
[2022-01-30 21:48] LABS: CALCIUM 8.1 MG/DL (8.5-10.1); CREATININE SERUM 1.41 MG/DL (0.60-1.30); POTASSIUM 3.3 MMOL/L (3.6-5.0)
[2022-01-31] MEDS: 1/2 NS IV SOLUTION 1,000 ML IV SCH ×2 (00:25→05:24)
[2022-01-31] MEDS: ALPRAZolam 0.5 MG (XANAX) TAB PO SCH ×3 (00:25→08:40)
[2022-01-31] MEDS: POTASSIUM CL 10MEQ/50ML IVPB 50 ML IV SCH ×2 (00:32→04:26)
[2022-01-31 01:28] LABS: POTASSIUM 2.8 MMOL/L (3.6-5.0)
[2022-01-31 01:29] LABS: CALCIUM 8.3 MG/DL (8.5-10.1)
[2022-01-31 01:34] LABS: CREATININE SERUM 1.33 MG/DL (0.60-1.30)
[2022-01-31] MEDS: NOREPINEPHRINE 8 MG/250 ML 250 ML IV SCH (05:24)
[2022-01-31 05:41] LABS: BASOPHILS % (AUTO) 0 % (0-10); EOSINOPHILS % (AUTO) 0 % (0-10); HEMATOCRIT 35 % (40-54); HEMOGLOBIN 12.4 g/dL (13.3-17.7); LYMPHOCYTES # (AUTO) 1.3 10^3/uL (1.0-4.0); LYMPHOCYTES % (AUTO) 11 % (12-44); MEAN CORPUSCULAR HEMOGLOBIN 31 pg (25-34); MEAN CORPUSCULAR HGB CONC 35 g/dL (32-36); MEAN CORPUSCULAR VOLUME 88 fL (80-99); MEAN PLATELET VOLUME 10.3 fL (9.0-12.2); MONOCYTES # (AUTO) 0.8 10^3/uL (0.0-1.0); MONOCYTES % (AUTO) 6 % (0-12); NEUTROPHILS # (AUTO) 10.2 10^3/uL (1.8-7.8); NEUTROPHILS % (AUTO) 82 % (42-75); PLATELET COUNT 149 10^3/uL (130-400); WHITE BLOOD COUNT 12.5 10^3/uL (4.3-11.0)
[2022-01-31] MEDS ORDERED: MAGNESIUM 1 GM/100 ML IVPB 100 ML IV SCH (06:00)
[2022-01-31] MEDS ORDERED: KCL 20 MEQ TAB (K-DUR) PO SCH (06:00)
[2022-01-31] MEDS: D5 1/2 NS 1000 ML IV SOLUTION 1,000 ML IV SCH (06:09)
[2022-01-31 06:11] LABS: ALBUMIN 2.6 GM/DL (3.2-4.5); BILIRUBIN,TOTAL 0.6 MG/DL (0.1-1.0); CALCIUM 7.8 MG/DL (8.5-10.1); CREATININE SERUM 1.16 MG/DL (0.60-1.30); MAGNESIUM 1.8 MG/DL (1.6-2.4); POTASSIUM 3.2 MMOL/L (3.6-5.0); TOTAL PROTEIN 5.4 GM/DL (6.4-8.2)
[2022-01-31 06:52] LABS: PHOSPHORUS 0.9 MG/DL (2.3-4.7)
--- NOTE | 2022-01-31 07:04 | Progress Note - Hospitalist ---
Subjective HPI/CC On Admission Date Seen by Provider: Jan 31, 2022 Time Seen by Provider: 11:00 Chief complaint: DKA with A. fib with RVR HPI: This is a 76-year-old male clinic patient of Dr. Mcclain who has a recent 3-month history of hyperglycemia unresolved with oral hypoglycemic medication who presented to the ER with weakness palpitations and was found to have DKA and A. fib with RVR. Patient overall feels weak but his sister reports he looks better than when he was admitted. Cardiology will be consulted. DKA protocol will be followed. Cardizem drip initiated. Subjective/Events-last exam Much improved Improved sugars Creat improved Bacteremia noted Added Vanc due to Gram + Review of Systems General: Fatigue, Malaise Neurological: Weakness Focused Exam Lactate Level 01/30/22 09:45: Lactic Acid Level 2.84*H 01/30/22 12:15: Lactic Acid Level 3.51*H 01/30/22 14:20: Lactic Acid Level 1.63 Objective Exam Vital Signs Vital Signs Date Time Temp Pulse Resp B/P (MAP) Pulse Ox O2 Delivery O2 Flow Rate FiO2 01/31/22 19:00 131 01/31/22 18:43 96 Room Air 01/31/22 16:15 36.5 18 115/68 (84) 01/30/22 21:34 21 Capillary Refill : Less Than 3 Seconds General Appearance: No Apparent Distress, WD/WN, Chronically ill Respiratory: Lungs Clear, Normal Breath Sounds Cardiovascular: Regular Rate, Rhythm Neurologic/Psychiatric: Alert, Oriented x3 Results/Procedures Lab Laboratory Tests 01/30/22 21:00 01/31/22 01:10 01/31/22 05:19 Patient resulted labs reviewed. Assessment/Plan Assessment and Plan Assess & Plan/Chief Complaint Assessment: DKA new onset A. fib with RVR Subjective fever with suspicion of pneumonia Sepsis Lactic acidosis likely from Metformin Known history of atrial fibrillation Acute kidney injury Dehydration Bacteremia Plan: DKA protocol Cardiology consult Cardizem drip IV fluids IV antibiotics empirically Critical Care Critically Ill Patient Diagnosis/Problems Diagnosis/Problems (1) Atrial fibrillation with rapid ventricular response Status: Acute (2) DKA (diabetic ketoacidosis) Status: Acute Qualifiers: Diabetes mellitus type: due to underlying condition Diabetes mellitus complication detail: without coma Qualified Codes: E08.10 - Diabetes mellitus due to underlying condition with ketoacidosis without coma (3) Mixed hyperlipidemia (4) Primary hypertension (5) Permanent atrial fibrillation (6) Sepsis (7) Pneumonia RENO BERRY DO Jan 31, 2022 07:04
[2022-01-31] MEDS ORDERED: POTASSIUM PHOSPHATE INJ 30 MM in NS (IVPB) 250 ML IV ONE (07:30)
[2022-01-31] MEDS: RT-ALBUTEROL/IPRATROPIUM 3 ML (DUONEB) VIAL INH SCH ×2 (07:56→18:43)
[2022-01-31] MEDS ORDERED: inSUlin ASPART (NovoLOG) 1 UNIT/0.01 ML (CHARGE PER UNIT) SC SCH (08:15)
--- NOTE | 2022-01-31 08:16 | Diagnostic Imaging Report ---
EXAMINATION: Chest 1 view HISTORY: SORE THROAT, COUGH, COMPARISON: 01/30/2022 FINDINGS: Heart size and pulmonary vasculature are stable. The lungs are clear without consolidation, pleural effusion, or pneumothorax. Degenerative changes of the thoracic spine. Osseous structures are otherwise intact. IMPRESSION: 1. No acute radiographic abnormality in the chest. Dictated by: Dictated on workstation # [id number]
[2022-01-31] MEDS: AZITHROMYCIN INJECTION 500 MG in NS (IVPB) 250 ML IV SCH (08:38)
[2022-01-31] MEDS: KCL 20 MEQ TAB (K-DUR) PO SCH ×2 (08:40→11:50)
--- NOTE | 2022-01-31 08:55 | Tele-ICU Progress Note ---
Progress Note video rounds completed 76 y/o male admitted with a fib and RVR and DKA Anion gap has cloed and now off insulin drip Started sliding scale coverage and levimir 10 units/day On PO diltiazem Overall improving Focused Exam Lactate Level 01/30/22 09:45: Lactic Acid Level 2.84*H 01/30/22 12:15: Lactic Acid Level 3.51*H 01/30/22 14:20: Lactic Acid Level 1.63 Height, Weight, BMI Height: 5'9.00" Weight: 180lbs. oz. [id number]; 27.00 BMI Method:Stated Labs Laboratory Tests 01/30/22 09:45 01/30/22 12:15 01/30/22 17:40 01/30/22 21:00 01/31/22 01:10 01/31/22 05:19 Results Results/Procedures Labs Laboratory Tests 01/30/22 09:45 01/30/22 12:15 01/30/22 17:40 01/30/22 21:00 01/31/22 01:10 01/31/22 05:19 Patient resulted labs reviewed. Results Labs Labs Laboratory Tests 01/30/22 09:45: White Blood Count 17.6H, Red Blood Count 4.73, Hemoglobin 14.8, Hematocrit 42, Mean Corpuscular Volume 89, Mean Corpuscular Hemoglobin 31, Mean Corpuscular Hemoglobin Concent 35, Red Cell Distribution Width 13.7, Platelet Count 166, Mean Platelet Volume 10.6, Immature Granulocyte % (Auto) 1, Neutrophils (%) (Auto) 82H, Lymphocytes (%) (Auto) 12, Monocytes (%) (Auto) 4, Eosinophils (%) (Auto) 0, Basophils (%) (Auto) 0, Neutrophils # (Auto) 14.5H, Lymphocytes # (Auto) 2.1, Monocytes # (Auto) 0.8, Eosinophils # (Auto) 0.0, Basophils # (Auto) 0.0, Immature Granulocyte # (Auto) 0.2H, Neutrophils % (Manual) 79, Lymphocytes % (Manual) 14, Monocytes % (Manual) 7, Eosinophils % (Manual) 0, Basophils % (Manual) 0, Band Neutrophils 0, Blood Morphology Comment NORMAL, Sodium Level 124*L, Potassium Level 4.0, Chloride Level 89L, Carbon Dioxide Level 10L, Anion Gap 25H, Blood Urea Nitrogen 37H, Creatinine 2.10H, Estimat Glomerular Filtration Rate 32, BUN/Creatinine Ratio 18, Glucose Level 568*H, Lactic Acid Level 2.84*H, Calcium Level 9.9, Corrected Calcium 10.1, Total Bilirubin 1.0, Aspartate Amino Transf (AST/SGOT) 20, Alanine Aminotransferase (ALT/SGPT) 35, Alkaline Phosphatase 135, Troponin I < 0.028, Total Protein 7.5, Albumin 3.7 01/30/22 09:46: 01/30/22 09:57: Influenza Type A (RT-PCR) Not Detected, Influenza Type B (RT-PCR) Not Detected, SARS-CoV-2 RNA (RT-PCR) Not Detected, Group A Streptococcus Screen NEGATIVE 01/30/22 10:59: Glucometer 500*H 01/30/22 12:15: Sodium Level 126L, Potassium Level 3.7, Chloride Level 92L, Carbon Dioxide Level 9*L, Anion Gap 25H, Blood Urea Nitrogen 38H, Creatinine 2.09H, Estimat Glomerular Filtration Rate 32, BUN/Creatinine Ratio 18, Glucose Level 564*H, Lactic Acid Level 3.51*H, Calcium Level 9.6 01/30/22 12:22: Glucometer 518*H 01/30/22 13:31: Glucometer 392H 01/30/22 14:20: Lactic Acid Level 1.63 01/30/22 15:08: Glucometer 335H 01/30/22 15:51: Glucometer 301H 01/30/22 16:44: Glucometer 242H 01/30/22 17:08: Urine Color YELLOW, Urine Clarity CLEAR, Urine pH 6.0, Urine Specific [place] 1.020, Urine Protein 1+H, Urine Glucose (UA) NEGATIVE, Urine Ketones NEGATIVE, Urine Nitrite NEGATIVE, Urine Bilirubin NEGATIVE, Urine Urobilinogen 0.2, Urine Leukocyte Esterase NEGATIVE, Urine RBC (Auto) 2+H, Urine RBC 5-10H, Urine WBC NONE, Urine Squamous Epithelial Cells NONE, Urine Crystals NONE, Urine Bacteria NEGATIVE, Urine Casts NONE, Urine Mucus NEGATIVE, Urine Culture Indicated NO 01/30/22 17:40: Sodium Level 125*L, Potassium Level 4.6, Chloride Level 100, Carbon Dioxide Level 9*L, Anion Gap 16H, Blood Urea Nitrogen 33H, Creatinine 1.53H, Estimat Glomerular Filtration Rate 46, BUN/Creatinine Ratio 22, Glucose Level 216H, Calcium Level 8.6 01/30/22 17:46: Glucometer 220H 01/30/22 18:51: Glucometer 262H 01/30/22 19:51: Glucometer 215H 01/30/22 21:00: Sodium Level 129L, Potassium Level 3.3L, Chloride Level 100, Carbon Dioxide Level 16L, Anion Gap 13, Blood Urea Nitrogen 29H, Creatinine 1.41H, Estimat Glomerular Filtration Rate 51, BUN/Creatinine Ratio 21, Glucose Level 253H, Calcium Level 8.1L 01/30/22 21:01: Glucometer 246H 01/30/22 22:07: Glucometer 261H 01/30/22 22:58: Glucometer 283H 01/31/22 00:09: Glucometer 308H 01/31/22 01:10: Sodium Level 127L, Potassium Level 2.8L, Chloride Level 99, Carbon Dioxide Level 17L, Anion Gap 11, Blood Urea Nitrogen 24H, Creatinine 1.33H, Estimat Glomerular Filtration Rate 55, BUN/Creatinine Ratio 18, Glucose Level 192H, Calcium Level 8.3L 01/31/22 01:19: Glucometer 207H 01/31/22 02:01: Glucometer 187H 01/31/22 03:14: Glucometer 186H 01/31/22 04:25: Glucometer 184H 01/31/22 05:13: Glucometer 164H 01/31/22 05:19: White Blood Count 12.5H, Red Blood Count 3.96L, Hemoglobin 12.4L, Hematocrit 35L , Mean Corpuscular Volume 88, Mean Corpuscular Hemoglobin 31, Mean Corpuscular Hemoglobin Concent 35, Red Cell Distribution Width 13.7, Platelet Count 149, Mean Platelet Volume 10.3, Immature Granulocyte % (Auto) 1, Neutrophils (%) (Au to) 82H, Lymphocytes (%) (Auto) 11L, Monocytes (%) (Auto) 6, Eosinophils (%) (Auto) 0, Basophils (%) (Auto) 0, Neutrophils # (Auto) 10.2H, Lymphocytes # (Auto) 1.3, Monocytes # (Auto) 0.8, Eosinophils # (Auto) 0.0, Basophils # (Auto) 0.0, Immature Granulocyte # (Auto) 0.1, Sodium Level 127L, Potassium Level 3.2L, Chloride Level 102, Carbon Dioxide Level 15L, Anion Gap 10, Blood Urea Nitrogen 21H, Creatinine 1.16, Estimat Glomerular Filtration Rate 64, BUN/Creatinine Ratio 18, Glucose Level 171H, Calcium Level 7.8L, Corrected Calcium 8.9, Phosphorus Level 0.9*L, Magnesium Level 1.8, Total Bilirubin 0.6, Aspartate Amino Transf (AST/SGOT) 19, Alanine Aminotransferase (ALT/SGPT) 20, Alkaline Phosphatase 88, Total Protein 5.4L, Albumin 2.6L 01/31/22 06:06: Glucometer 156H 01/31/22 06:59: Glucometer 129H Microbiology 01/30/22 Blood Culture - Preliminary, Resulted Gram Negative Ismael ANGELA DOMINGO MD Jan 31, 2022 08:55
[2022-01-31] MEDS: D5 1/2 NS W/KCL 20 MEQ/L 1,000 ML IV SCH (08:57)
[2022-01-31] MEDS: DOCUSATE SODIUM 100 MG (COLACE) CAP PO SCH ×2 (09:19→21:27)
[2022-01-31] MEDS: SENNOSIDES 8.6 MG (SENOKOT) TAB PO SCH ×2 (09:19→21:27)
[2022-01-31] MEDS ORDERED: ALPRAZolam 0.25 MG (XANAX) TAB PO PRN (11:15)
--- NOTE | 2022-01-31 11:34 | Cardiology Progress Note ---
Progress Note-Cardiology Events since last exam Date Seen by Provider: Jan 31, 2022 Time Seen by Provider: 11:33 Events since last exam I am following him due to permanent atrial fibrillation. He is in the intensive care unit but has transfer orders to the medical floor. He was a little bit groggy when I saw him after receiving Xanax earlier today. He denies chest discomfort. He states his breathing has improved. He denies palpitations, syncope, or ankle edema. Certain portions of this document may have been dictated utilizing voice recognition technology. Inherent to this technology, typographical and grammatical errors may exist. As much as I am diligent to identify and correct these mistakes, some errors may remain in the document. Vitals Last set of Vitals Signs Vital Signs 01/30/22 01/31/22 01/31/22 21:34 04:01 12:00 Temp 36.2 Pulse 100 Resp 23 B/P (MAP) 104/72 (83) Pulse Ox 95 O2 Delivery Room Air FiO2 21 Labs Labs Laboratory Tests 01/30/22 17:40 01/30/22 21:00 01/31/22 01:10 01/31/22 05:19 Exam Vital Signs Vital Signs Date Time Temp Pulse Resp B/P (MAP) Pulse Ox O2 Delivery O2 Flow Rate FiO2 01/31/22 12:00 100 23 104/72 (83) 95 Room Air 01/31/22 04:01 36.2 01/30/22 21:34 21 Physical Exam General: A little bit somnolent but arousable to voice and communicating clearly. No acute distress. Eye: No xanthelasma. HENT: Normocephalic. Neck: Jugular venous pressure does not appear elevated. Respiratory: Lungs have some scattered wheezes bilaterally. Respirations are non-labored. Breath sounds are equal. Symmetrical chest wall expansion. Cardiovascular: Normal rate. Irregular rhythm. No murmur. No gallop. No edema. Gastrointestinal: Soft. Normal bowel sounds. Skin: Warm. Dry. Neurologic: Alert and oriented to person, place, time. Cranial nerves 3-11 grossly intact. Psychiatric: Cooperative. Appropriate mood & affect. Labs Laboratory Tests Test 01/30/22 13:31 01/30/22 14:20 01/30/22 15:08 01/30/22 15:51 Range/Units Glucometer 392 H 335 H 301 H 70-110 MG/DL Lactic Acid Level 1.63 0.50-2.00 MMOL/L Test 01/30/22 16:44 01/30/22 17:08 01/30/22 17:40 01/30/22 17:46 Range/Units Glucometer 242 H 220 H 70-110 MG/DL Urine Color YELLOW Urine Clarity CLEAR Urine pH 6.0 5-9 Urine Specific [place] 1.020 1.016-1.022 Urine Protein 1+ H NEGATIVE Urine Glucose (UA) NEGATIVE NEGATIVE Urine Ketones NEGATIVE NEGATIVE Urine Nitrite NEGATIVE NEGATIVE Urine Bilirubin NEGATIVE NEGATIVE Urine Urobilinogen 0.2 < = 1.0 MG/DL Urine Leukocyte Esterase NEGATIVE NEGATIVE Urine RBC (Auto) 2+ H NEGATIVE Urine RBC 5-10 H /HPF Urine WBC NONE /HPF Urine Squamous Epithelial Cells NONE /HPF Urine Crystals NONE /LPF Urine Bacteria NEGATIVE /HPF Urine Casts NONE /LPF Urine Mucus NEGATIVE /LPF Urine Culture Indicated NO Sodium Level 125 *L 135-145 MMOL/L Potassium Level 4.6 3.6-5.0 MMOL/L Chloride Level 100 98-107 MMOL/L Carbon Dioxide Level 9 *L 21-32 MMOL/L Anion Gap 16 H 5-14 MMOL/L Blood Urea Nitrogen 33 H 7-18 MG/DL Creatinine 1.53 H 0.60-1.30 MG/DL Estimat Glomerular Filtration Rate 46 BUN/Creatinine Ratio 22 Glucose Level 216 H 70-105 MG/DL Calcium Level 8.6 8.5-10.1 MG/DL Test 01/30/22 18:51 01/30/22 19:51 01/30/22 21:00 01/30/22 21:01 Range/Units Glucometer 262 H 215 H 246 H 70-110 MG/DL Sodium Level 129 L 135-145 MMOL/L Potassium Level 3.3 L 3.6-5.0 MMOL/L Chloride Level 100 98-107 MMOL/L Carbon Dioxide Level 16 L 21-32 MMOL/L Anion Gap 13 5-14 MMOL/L Blood Urea Nitrogen 29 H 7-18 MG/DL Creatinine 1.41 H 0.60-1.30 MG/DL Estimat Glomerular Filtration Rate 51 BUN/Creatinine Ratio 21 Glucose Level 253 H 70-105 MG/DL Calcium Level 8.1 L 8.5-10.1 MG/DL Test 01/30/22 22:07 01/30/22 22:58 01/31/22 00:09 01/31/22 01:10 Range/Units Glucometer 261 H 283 H 308 H 70-110 MG/DL Sodium Level 127 L 135-145 MMOL/L Potassium Level 2.8 L 3.6-5.0 MMOL/L Chloride Level 99 98-107 MMOL/L Carbon Dioxide Level 17 L 21-32 MMOL/L Anion Gap 11 5-14 MMOL/L Blood Urea Nitrogen 24 H 7-18 MG/DL Creatinine 1.33 H 0.60-1.30 MG/DL Estimat Glomerular Filtration Rate 55 BUN/Creatinine Ratio 18 Glucose Level 192 H 70-105 MG/DL Calcium Level 8.3 L 8.5-10.1 MG/DL Test 01/31/22 01:19 01/31/22 02:01 01/31/22 03:14 01/31/22 04:25 Range/Units Glucometer 207 H 187 H 186 H 184 H 70-110 MG/DL Test 01/31/22 05:13 01/31/22 05:19 01/31/22 06:06 01/31/22 06:59 Range/Units Glucometer 164 H 156 H 129 H 70-110 MG/DL White Blood Count 12.5 H 4.3-11.0 10^3/uL Red Blood Count 3.96 L 4.30-5.52 10^6/uL Hemoglobin 12.4 L 13.3-17.7 g/dL Hematocrit 35 L 40-54 % Mean Corpuscular Volume 88 80-99 fL Mean Corpuscular Hemoglobin 31 25-34 pg Mean Corpuscular Hemoglobin Concent 35 32-36 g/dL Red Cell Distribution Width 13.7 10.0-14.5 % Platelet Count 149 130-400 10^3/uL Mean Platelet Volume 10.3 9.0-12.2 fL Immature Granulocyte % (Auto) 1 % Neutrophils (%) (Auto) 82 H 42-75 % Lymphocytes (%) (Auto) 11 L 12-44 % Monocytes (%) (Auto) 6 0-12 % Eosinophils (%) (Auto) 0 0-10 % Basophils (%) (Auto) 0 0-10 % Neutrophils # (Auto) 10.2 H 1.8-7.8 10^3/uL Lymphocytes # (Auto) 1.3 1.0-4.0 10^3/uL Monocytes # (Auto) 0.8 0.0-1.0 10^3/uL Eosinophils # (Auto) 0.0 0.0-0.3 10^3/uL Basophils # (Auto) 0.0 0.0-0.1 10^3/uL Immature Granulocyte # (Auto) 0.1 0.0-0.1 10^3/uL Sodium Level 127 L 135-145 MMOL/L Potassium Level 3.2 L 3.6-5.0 MMOL/L Chloride Level 102 98-107 MMOL/L Carbon Dioxide Level 15 L 21-32 MMOL/L Anion Gap 10 5-14 MMOL/L Blood Urea Nitrogen 21 H 7-18 MG/DL Creatinine 1.16 0.60-1.30 MG/DL Estimat Glomerular Filtration Rate 64 BUN/Creatinine Ratio 18 Glucose Level 171 H 70-105 MG/DL Calcium Level 7.8 L 8.5-10.1 MG/DL Corrected Calcium 8.9 8.5-10.1 MG/DL Phosphorus Level 0.9 *L 2.3-4.7 MG/DL Magnesium Level 1.8 1.6-2.4 MG/DL Total Bilirubin 0.6 0.1-1.0 MG/DL Aspartate Amino Transf (AST/SGOT) 19 5-34 U/L Alanine Aminotransferase (ALT/SGPT) 20 0-55 U/L Alkaline Phosphatase 88 40-136 U/L Total Protein 5.4 L 6.4-8.2 GM/DL Albumin 2.6 L 3.2-4.5 GM/DL Test 01/31/22 07:04 01/31/22 07:54 01/31/22 10:42 01/31/22 11:32 Range/Units Beta-Hydroxybutyrate (Chem panel) 0.07 2.44 H 0.00-0.27 MMOL/L Glucometer 94 224 H 70-110 MG/DL Diagnosis/Problems Diagnosis/Problems (1) Permanent atrial fibrillation Assessment & Plan: He underwent a previous cardioversion earlier this year but then when he returned to the office a week later, he was in atrial fibrillation with a controlled ventricular rate on diltiazem. He seems to be asymptomatic with the atrial fibrillation. He has been on rivaroxaban for stroke prophylaxis but at the renal adjusted dose. I have restarted his oral diltiazem but at a slightly lower dose than what he was taking at home because his blood pressures are somewhat soft here in the hospital. We will continue the renal adjusted dosing of rivaroxaban for stroke prophylaxis. (2) Primary hypertension Assessment & Plan: He is currently normotensive. As above, I will restart his oral diltiazem but at 1/2 the dose he was taking at home due to soft blood pressures this morning. (3) Mixed hyperlipidemia Assessment & Plan: Continue statin medication. (4) Acute kidney injury superimposed on chronic kidney disease Assessment & Plan: His renal function improved after receiving IV fluids. (5) Type 2 diabetes mellitus with complication Assessment & Plan: This is being managed by the hospitalist. JF SCHWAB JR, MD Jan 31, 2022 11:34
[2022-01-31] MEDS ORDERED: dilTIAZem120 MG (CARDIZEM CD) CAP PO ONE (11:45)
[2022-01-31] MEDS: cefTRIAXone 1 GM PRE-MIX 50 ML IV SCH (11:50)
[2022-01-31 14:18] VITALS: BP 111/69
[2022-01-31] MEDS ORDERED: VANCOMYCIN INJECTION 0.1 MG in NS (IVPB) 250 ML IV SCH (15:00)
[2022-01-31] MEDS ORDERED: VANCOMYCIN 1,750 MG/NS 500 ML IVPB IV NR ×2 (15:30)
[2022-01-31] MEDS: inSUlin ASPART (NovoLOG) 1 UNIT/0.01 ML (CHARGE PER UNIT) SC SCH ×2 (15:50→21:26)
[2022-01-31 16:15] VITALS: BP 115/68
[2022-01-31] MEDS: RIVAROXABAN 15 MG TABLET (XARELTO) PO SCH (17:27)
[2022-01-31 20:37] VITALS: BP 125/69
[2022-01-31] MEDS: NS IV 1000 ML 1,000 ML IV SCH (23:16)
[2022-02-01 00:01] VITALS: BP 127/69
[2022-02-01 04:00] VITALS: BP 110/67
[2022-02-01] MEDS: VANCOMYCIN 1 GM/NS 250 ML IVPB IV SCH ×4 (05:57→17:09)
[2022-02-01] MEDS: inSUlin ASPART (NovoLOG) 1 UNIT/0.01 ML (CHARGE PER UNIT) SC SCH ×6 (05:58→23:50)
[2022-02-01 06:16] LABS: BASOPHILS % (AUTO) 0 % (0-10); EOSINOPHILS % (AUTO) 0 % (0-10); HEMATOCRIT 37 % (40-54); LYMPHOCYTES % (AUTO) 17 % (12-44); MEAN CORPUSCULAR HEMOGLOBIN 31 pg (25-34); MEAN CORPUSCULAR HGB CONC 35 g/dL (32-36); MEAN CORPUSCULAR VOLUME 87 fL (80-99); MEAN PLATELET VOLUME 9.8 fL (9.0-12.2); MONOCYTES % (AUTO) 8 % (0-12); NEUTROPHILS # (AUTO) 8.8 10^3/uL (1.8-7.8); NEUTROPHILS % (AUTO) 74 % (42-75); PLATELET COUNT 179 10^3/uL (130-400)
[2022-02-01 06:31] LABS: ALBUMIN 2.6 GM/DL (3.2-4.5); POTASSIUM 3.4 MMOL/L (3.6-5.0)
[2022-02-01 06:33] LABS: CALCIUM 7.9 MG/DL (8.5-10.1)
[2022-02-01 06:34] LABS: TOTAL PROTEIN 5.5 GM/DL (6.4-8.2)
[2022-02-01 06:37] LABS: CREATININE SERUM 1.09 MG/DL (0.60-1.30)
[2022-02-01 06:40] LABS: MAGNESIUM 1.9 MG/DL (1.6-2.4)
[2022-02-01 07:33] VITALS: BP 116/71
[2022-02-01] MEDS: NS IV 1000 ML 1,000 ML IV SCH ×3 (08:36→23:57)
[2022-02-01] MEDS: AZITHROMYCIN INJECTION 500 MG in NS (IVPB) 250 ML IV SCH (08:37)
[2022-02-01] MEDS: DOCUSATE SODIUM 100 MG (COLACE) CAP PO SCH ×2 (08:38→23:51)
[2022-02-01] MEDS: dilTIAZem120 MG (CARDIZEM CD) CAP PO SCH (08:38)
[2022-02-01] MEDS: SENNOSIDES 8.6 MG (SENOKOT) TAB PO SCH ×2 (08:38→23:51)
[2022-02-01] MEDS: RT-ALBUTEROL/IPRATROPIUM 3 ML (DUONEB) VIAL INH SCH ×2 (08:58→21:46)
[2022-02-01] MEDS: D5 1/2 NS W/KCL 20 MEQ/L 1,000 ML IV SCH (09:00)
--- NOTE | 2022-02-01 09:59 | Physical Therapy Evaluation ---
PT Evaluation-General Medical Diagnosis Admission Date Jan 30, 2022 at 11:33 Medical Diagnosis: PINA/A-fib with RVR Onset Date: Jan 30, 2022 Therapy Diagnosis Therapy Diagnosis: generalized weakness/impaired mobility Height/Weight Height (Feet): 5 Height (Inches): 9.00 Weight (Pounds): 180 Precautions Precautions/Isolations: Fall Prevention, Standard Precautions Referral Physician: Bennett Reason for Referral: Evaluation/Treatment Medical History Pertinent Medical History: Atrial Fib, DM, HTN Current History ER secondary to sore throat, runny nose and "not feeling well" Reviewed History: Yes Social History Home: Single Level Current Living Status: Other Family Entry Into Home: Stairs With Railing PT Steps Into Home: 3 Prior Prior Level of Function SCALE: Activities may be completed with or without assistive devices. 3-Ewoagblfcz-oakdqrx completes the activity by him/herself with no assistance from a helper. 5-Set-up or Clean-up Assistance-helper sets up or cleans up; patient completes activity. [place] assists only prior to or following the activity. 4-Supervision or Touching Assistance-helper provides verbal cues and/or touching/steadying and/or contact guard assistance as patient completes activity. Assistance may be provided throughout the activity or intermittently. 3-Partial/Moderate Assistance-helper does LESS THAN HALF the effort. [place] lifts, holds or supports trunk or limbs, but provides less than half the effort. 2-Substantial/Maximal Assistance-helper does MORE THAN HALF the effort. [place] lifts or holds trunk or limbs and provides more than half the effort. 3-Mnxhduhka-palcoo does ALL the effort. Patient does none of the effort to complete the activity. Or, the assistance of 2 or more helpers is required for the patient to complete the activity. If activity was not attempted, code reason: 7-Patient Refused. 9-Not Applicable-not attempted and the patient did not perform the activity before the current illness, exacerbation or injury. 10-Not Attempted due to Environmental Limitations-(lack of equipment, weather restraints, etc.). 88-Not Attempted due to Medical Conditions or Safety Concerns. Bed Mobility: 6 Transfers (B,C,W/C): 6 Gait: 6 Stairs: 6 Indoor Mobility (Ambulation): Independent Stairs: Independent Prior Devices Use: None PT Evaluation-Current Subjective Patient agrees to PT. Objective Patient Orientation: Normal For Age Attachments: IV ROM/Strength ROM Lower Extremities bilateral LE WFL Strength Lower Extremities 4/5 grossly bilateral LE all planes Integumentary/Posture Bowel Incontinence: No Bladder Incontinence: No Posture WFL Neuromuscular (Tone, Coordination, Reflexes) grossly intact Sensory Vision: Functional Hearing: Impaired Transfers Lying to Sitting/Side of Bed(Q: 6 Sit to Stand (QC): 4 Chair/Ini-ea-Kuqzv Xfer(QC): 4 Gait Mode of Locomotion: Walk Anticipated Mode of Locomotion: Walk Walk 10 feet (QC): 4 Walk 50 ft with 2 Turns(QC): 4 Walk 150 ft (QC): 4 Distance: 250' Gait Assistive Device: FWW Comments/Gait Description safe and functional with no deviation Balance Sitting Static: Normal Sitting Dynamic: Normal Standing Static: Normal Standing Dynamic: Normal Assessment/Needs 76 y.o. male, will be seen short term by skilled PT to address functional strength and mobility to improve current LOF to safely return to home at maximum LOF. Rehab Potential: Fair PT Client Service Executive Goals Assisted Goals PT Assisted Goals Time Frame: Feb 13, 2022 Roll Left & Right (QC): 6 Sit to Lying (QC): 6 Lying-Sitting on Side/Bed(QC): 6 Sit to Stand (QC): 6 Chair/Cnj-hx-Mkxov Xfer(QC): 6 Toilet Transfer (QC): 6 Walk 10 feet (QC): 6 Walk 50ft with 2 Turns (QC): 6 Walk 150 ft (QC): 6 PT Plan Problem List Problem List: Activity Tolerance, Safety Treatment/Plan Treatment Plan: Continue Plan of Care Treatment Plan: Education, Functional Activity Christina, Functional Strength, Gait, Safety, Therapeutic Exercise, Transfers Treatment Duration: Feb 13, 2022 Frequency: 6 times per week Estimated Hrs Per Day: .25 hour per day Patient and/or Family Agrees t: Yes Time Time In: 836 Time Out: 852 DATE: Feb 01, 2022 Total Billed Treatment Time: 16 Total Billed Treatment 1 visit EVMod 16 min YVETTE RENEE PT Feb 01, 2022 09:58
[2022-02-01] MEDS ORDERED: GLIP10TA13 PO (10:19)
[2022-02-01] MEDS: cefTRIAXone 1 GM PRE-MIX 50 ML IV SCH (11:37)
--- NOTE | 2022-02-01 11:48 | Progress Note - Hospitalist ---
CHIRAGISAI 02/01/22 1148: Subjective HPI/CC On Admission Date Seen by Provider: Feb 01, 2022 Time Seen by Provider: 10:00 Chief complaint: DKA with A. fib with RVR HPI: This is a 76-year-old male clinic patient of Dr. Mcclain who has a recent 3- month history of hyperglycemia unresolved with oral hypoglycemic medication who presented to the ER with weakness palpitations and was found to have DKA and A. fib with RVR. Patient overall feels weak but his sister reports he looks better than when he was admitted. Cardiology will be consulted. DKA protocol will be followed. Cardizem drip initiated. Subjective/Events-last exam Patient is a 76-year-old male with a history of afib, HTN, HLD, T2DM, and CKD and a patient of Dr. Mcclain that presented to the ED on 01/30 with complaint of a sore throat, subjective fever, malaise, and weakness. The patient states that they had been having these symptoms for approximately a week before admission, but they had begun to worsen. The patient states that they had not been able to eat or drink much for a few days prior to admission due to his sore throat. On admission, he was found to be in afib with RVR and was found to be in DKA. Cardiology was consulted and the patient was placed on diltiazem and started on DKA protocol. The patient's BUN and creatinine were elevated on admission at 37 and 2.10 which improved with IV fluids and has continued to improve over the course of his stay. Blood cultures grew gram negative rods and gram positive cocci with further identification and sensitivities pending. The patient is currently on vancomycin, rocephin, and azithromycin. The patient had some confusion and AMS on admission that has improved. Currently, the patient states they are doing well and currently has no complaints however their pulse was in the 160s this morning and an EKG was obtained which showed the patient was in afib with RVR. Review of Systems General: No Chills, No Night Sweats HEENT: No Visual Changes, No Eye Pain Pulmonary: No Dyspnea, No Cough Cardiovascular: No: Chest Pain Gastrointestinal: No: Nausea, Vomiting, Abdominal Pain Genitourinary: No Incontinence, No Hematuria Neurological: Confusion (improving); No: Weakness, Numbness Focused Exam Lactate Level 01/30/22 09:45: Lactic Acid Level 2.84*H 01/30/22 12:15: Lactic Acid Level 3.51*H 01/30/22 14:20: Lactic Acid Level 1.63 Objective Exam Vital Signs Vital Signs Date Time Temp Pulse Resp B/P (MAP) Pulse Ox O2 Delivery O2 Flow Rate FiO2 02/01/22 12:57 107 02/01/22 11:49 36.7 18 117/76 (90) 98 Room Air 02/01/22 08:58 0.00 01/30/22 21:34 21 Capillary Refill : Less Than 3 Seconds General Appearance: No Apparent Distress, WD/WN HEENT: PERRL/EOMI Neck: Non Tender, Supple Respiratory: Chest Non Tender, Lungs Clear Cardiovascular: Normal Peripheral Pulses, Tachycardia Gastrointestinal: Non Tender, Soft Rectal: Deferred Extremity: Normal Capillary Refill, Non Tender Neurologic/Psychiatric: Alert, Oriented x3 Skin: Normal Color, Warm/Dry Lymphatic: No Adenopathy Results/Procedures Lab Laboratory Tests 02/01/22 05:53 Patient resulted labs reviewed. Assessment/Plan Assessment and Plan Assess & Plan/Chief Complaint Afib with RVR PINA CKD HTN HLD T2DM Hyponatremia Hypokalemia Dehydration Bacteremia Cardiology consulted Continue dilitiazem BUN and creatinine WNL after IV fluids, continue to monitor Sliding scale insulin Monitor and replace electrolytes as needed. On empiric IV antibiotics, awaiting further identification and sensitivities LAKESHA BERRY DO 02/02/22 0501: Subjective Subjective/Events-last exam Patient doing much better Blood sugar still high IV antibiotics we will continue No other issues Review of Systems General: Fatigue, Malaise Objective Exam General Appearance: No Apparent Distress, WD/WN Respiratory: Lungs Clear Cardiovascular: Regular Rate, Rhythm Neurologic/Psychiatric: Alert, Depressed Affect Assessment/Plan Assessment and Plan Assess & Plan/Chief Complaint Continue IV antibiotics Supervisory-Addendum Brief Verification & Attestation Participated in pt care: history, MDM, physical Personally performed: exam, history, MDM, supervision of care Care discussed with: Medical Student Procedures: n/a Results interpretation: Verified all documentation Verification and Attestation of Medical Student E/M Service A medical student performed and documented this service in my presence. I revie wed and verified all information documented by the medical student and made modifications to such information, when appropriate. I personally performed the physical exam and medical decision making. Lakesha Berry, Feb 02, 2022,05:01 ISAI BEARD Feb 01, 2022 11:48 LAKESHA BERRY DO Feb 02, 2022 05:01
[2022-02-01 11:49] VITALS: BP 117/76
--- NOTE | 2022-02-01 11:53 | Occupational Therapy Eval ---
OT Evaluation-General/PLF Medical Diagnosis Admission Date Jan 30, 2022 at 11:33 Medical Diagnosis: PINA/A-fib with RVR Onset Date: Jan 30, 2022 Therapy Diagnosis Therapy Diagnosis: Weakness Height/Weight Height (Feet): 5 Height (Inches): 9.00 Weight (Pounds): 180 Precautions Precautions/Isolations: Fall Prevention, Standard Precautions Referral Physician: Bennett Referral Reason: Evaluation/Treatment Medical History Pertinent Medical History: Atrial Fib, DM, HTN Current History Pt came to ER and was found to be in A-fib with RVR and acute kidney injury. Pt lives with family (sister) in a single story home. He was independent with all ADLs at home while his sister takes care of the IADLs. He was not using any AD prior to hospitalization. Reviewed History: Yes Social History Home: Single Level Current Living Status: Other Family (sister) Entry Into Home: Stairs With Railing Steps Into Home: 3 ADL-Prior Level of Function SCALE: Activities may be completed with or without assistive devices. 9-Cfrurhojqf-hnmyzab completes the activity by him/herself with no assistance from a helper. 5-Set-up or Clean-up Assistance-helper sets up or cleans up; patient completes activity. [place] assists only prior to or following the activity. 4-Supervision or Touching Assistance-helper provides verbal cues and/or touching/steadying and/or contact guard assistance as patient completes activity. Assistance may be provided throughout the activity or intermittently. 3-Partial/Moderate Assistance-helper does LESS THAN HALF the effort. [place] lifts, holds or supports trunk or limbs, but provides less than half the effort. 2-Substantial/Maximal Assistance-helper does MORE THAN HALF the effort. [place] lifts or holds trunk or limbs and provides more than half the effort. 3-Jzlvjhgxi-cmuhdf does ALL the effort. Patient does none of the effort to complete the activity. Or, the assistance of 2 or more helpers is required for the patient to complete the activity. If activity was not attempted, code reason: 7-Patient Refused. 9-Not Applicable-not attempted and the patient did not perform the activity before the current illness, exacerbation or injury. 10-Not Attempted due to Environmental Limitations-(lack of equipment, weather restraints, etc.). 88-Not Attempted due to Medical Conditions or Safety Concerns. Self Care: Independent Functional Cognition: Independent DME/Equipment: Shower [address] Self: Yes OT Current Status Subjective Pt laying in bed upon arrival. Pt needed encouragement from sister to participate in therapy eval. He is extremely hard of hearing. Appearance Pt was left laying in bed with all needs within reach and family members present. Mental Status/Objective Patient Orientation: Person, Place, Time, Situation Attachments: IV Current Glasses/Contacts: Yes (reading) Hand Dominance: Right Upper Extremity ROM WFL Upper Extremity Strength 4/5 at shoulders ADL-Treatment Eating (QC): 6 On/Off Footwear (QC): 6 Pt reluctantly agreeable to participate in therapy eval. Bed mobility: independent. Visually SOB during eval. Education on pursed lip breathing given. Pt independently able to doff socks by pulling foot onto side of bed but refuses to return demonstration to don "Why did you ask me to take them off, if you just wanted me to have them on?" Education provided on purpose of assessment. Per clinical judgment, pt would be able to don socks with independence in same manner as doffing. Pt refuses any further treatment and verbalizes that he does not require any further OT services as he is at his baseline with adls. Sister in room and in agreement. OT will discharge. Education OT Patient Education: Correct positioning, Energy conservation, Progress toward Goal/Update tx plan, Purpose of tx/functional activities, Rehab process, Safety issues Teaching Recipient: Patient, Family Teaching Methods: Demonstration, Discussion Response to Teaching: Verbalize Understanding OT Care Home Goals Process Development Associate Goals 1=Demonstrate adherence to instructed precautions during ADL tasks. 2=Patient will verbalize/demonstrate understanding of assistive devices/modifications for ADL. 3=Patient will improve strength/tolerance for activity to enable patient to perform ADL's. OT Education/Plan Problem List/Assessment Assessment: No Skilled OT Needs ID'd Discharge Recommendations Plan/Recommendations: Discontinue OT Therapy Discharge Recommendati: Homemaker Support, Home & Family Equpiment Recommendations-D/C: Bath Chair Treatment Plan/Plan of Care Treatment,Training & Education: Yes Patient would benefit from OT for education, treatment and training to promote independence in ADL's, mobility, safety and/or upper extremity function for ADL's. Plan of Care: ADL Retraining, Functional Mobility Treatment Duration: Feb 01, 2022 Frequency: 1 time per week Estimated Hrs Per Day: .25 hour per day Agreement: Yes Time Start Time: 11:17 Stop Time: 11:25 DATE: Feb 01, 2022 Total Time Billed (hr/min): 8 Billed Treatment Time 1 visit Raisa José OT Feb 01, 2022 11:53
[2022-02-01 15:30] VITALS: BP 111/60
--- NOTE | 2022-02-01 16:48 | Cardiology Progress Note ---
Progress Note-Cardiology Events since last exam Date Seen by Provider: Feb 01, 2022 Time Seen by Provider: 16:46 Events since last exam I am following him due to permanent atrial fibrillation. He has been transf erred out of the intensive care unit to the medical floor. He has been ambulating in his room without difficulty. He denies chest pain, dyspnea, palpitations, syncope, or ankle edema. Certain portions of this document may have been dictated utilizing voice recognition technology. Inherent to this technology, typographical and grammatical errors may exist. As much as I am diligent to identify and correct these mistakes, some errors may remain in the document. Vitals Last set of Vitals Signs Vital Signs 01/30/22 02/01/22 02/01/22 21:34 08:58 15:30 Temp 36.5 Pulse 86 Resp 20 B/P (MAP) 111/60 (77) Pulse Ox 98 O2 Delivery Room Air O2 Flow Rate 0.00 FiO2 21 Labs Labs Laboratory Tests 02/01/22 05:53 Exam Vital Signs Vital Signs Date Time Temp Pulse Resp B/P (MAP) Pulse Ox O2 Delivery O2 Flow Rate FiO2 02/01/22 15:30 36.5 86 20 111/60 (77) 98 Room Air 02/01/22 08:58 0.00 01/30/22 21:34 21 Physical Exam General: Alert. No acute distress. Eye: No xanthelasma. HENT: Normocephalic. Neck: Jugular venous pressure does not appear elevated. Respiratory: Lungs are clear to auscultation. Respirations are non-labored. Breath sounds are equal. Symmetrical chest wall expansion. Cardiovascular: Normal rate. Irregular rhythm. No murmur. No gallop. No edema. Gastrointestinal: Soft. Normal bowel sounds. Skin: Warm. Dry. Neurologic: Alert and oriented to person, place, time. Cranial nerves 3-11 grossly intact. Psychiatric: Cooperative. Appropriate mood & affect. Labs Laboratory Tests Test 01/31/22 20:54 02/01/22 05:41 02/01/22 05:53 02/01/22 11:27 Range/Units Glucometer 304 H 205 H 338 H 70-110 MG/DL White Blood Count 12.0 H 4.3-11.0 10^3/uL Red Blood Count 4.21 L 4.30-5.52 10^6/uL Hemoglobin 13.0 L 13.3-17.7 g/dL Hematocrit 37 L 40-54 % Mean Corpuscular Volume 87 80-99 fL Mean Corpuscular Hemoglobin 31 25-34 pg Mean Corpuscular Hemoglobin Concent 35 32-36 g/dL Red Cell Distribution Width 13.8 10.0-14.5 % Platelet Count 179 130-400 10^3/uL Mean Platelet Volume 9.8 9.0-12.2 fL Immature Granulocyte % (Auto) 1 % Neutrophils (%) (Auto) 74 42-75 % Lymphocytes (%) (Auto) 17 12-44 % Monocytes (%) (Auto) 8 0-12 % Eosinophils (%) (Auto) 0 0-10 % Basophils (%) (Auto) 0 0-10 % Neutrophils # (Auto) 8.8 H 1.8-7.8 10^3/uL Lymphocytes # (Auto) 2.0 1.0-4.0 10^3/uL Monocytes # (Auto) 1.0 0.0-1.0 10^3/uL Eosinophils # (Auto) 0.0 0.0-0.3 10^3/uL Basophils # (Auto) 0.0 0.0-0.1 10^3/uL Immature Granulocyte # (Auto) 0.2 H 0.0-0.1 10^3/uL Sodium Level 128 L 135-145 MMOL/L Potassium Level 3.4 L 3.6-5.0 MMOL/L Chloride Level 102 98-107 MMOL/L Carbon Dioxide Level 15 L 21-32 MMOL/L Anion Gap 11 5-14 MMOL/L Blood Urea Nitrogen 14 7-18 MG/DL Creatinine 1.09 0.60-1.30 MG/DL Estimat Glomerular Filtration Rate 69 BUN/Creatinine Ratio 13 Glucose Level 224 H 70-105 MG/DL Calcium Level 7.9 L 8.5-10.1 MG/DL Corrected Calcium 9.0 8.5-10.1 MG/DL Magnesium Level 1.9 1.6-2.4 MG/DL Total Bilirubin 1.0 0.1-1.0 MG/DL Aspartate Amino Transf (AST/SGOT) 73 H 5-34 U/L Alanine Aminotransferase (ALT/SGPT) 69 H 0-55 U/L Alkaline Phosphatase 113 40-136 U/L Total Protein 5.5 L 6.4-8.2 GM/DL Albumin 2.6 L 3.2-4.5 GM/DL Beta-Hydroxybutyrate (Chem panel) 0.42 H 0.00-0.27 MMOL/L Test 02/01/22 15:28 Range/Units Glucometer 227 H 70-110 MG/DL Diagnosis/Problems Diagnosis/Problems (1) Permanent atrial fibrillation Assessment & Plan: He underwent a previous cardioversion earlier this year but then when he returned to the office a week later, he was in atrial fibrillation with a controlled ventricular rate on diltiazem. He seems to be asymptomatic with the atrial fibrillation. I have restarted his oral diltiazem but at a slightly lower dose than what he was taking at home because his blood pressures are somewhat soft here in the hospital. We will continue the renal adjusted dosing of rivaroxaban for stroke prophylaxis. If his blood pressure improves, I will increase his dose of diltiazem to his previous home dose. (2) Primary hypertension Assessment & Plan: He is currently normotensive. As above, I restarted his oral diltiazem but at 1/2 the dose he was taking at home due to soft blood pressures during this admission. He was also on lisinopril at home which I have held. (3) Mixed hyperlipidemia Assessment & Plan: Continue statin medication. (4) Acute kidney injury superimposed on chronic kidney disease Assessment & Plan: His renal function improved after receiving IV fluids. (5) Type 2 diabetes mellitus with complication Assessment & Plan: This is being managed by the hospitalist. JF SCHWAB JR, MD Feb 01, 2022 16:48
[2022-02-01] MEDS: RIVAROXABAN 15 MG TABLET (XARELTO) PO SCH (17:09)
[2022-02-01 19:28] VITALS: BP 106/62
[2022-02-02] VITALS (8 sets, daily range): BP systolic 105–132; BP diastolic 55–81
[2022-02-02] MEDS ORDERED: TROUGH ORDER-PHARMACY XX NR (05:00)
[2022-02-02 06:03] LABS: BASOPHILS % (AUTO) 0 % (0-10); EOSINOPHILS # (AUTO) 0.1 10^3/uL (0.0-0.3); EOSINOPHILS % (AUTO) 1 % (0-10); HEMATOCRIT 33 % (40-54); HEMOGLOBIN 11.7 g/dL (13.3-17.7); LYMPHOCYTES # (AUTO) 2.2 10^3/uL (1.0-4.0); LYMPHOCYTES % (AUTO) 21 % (12-44); MEAN CORPUSCULAR HEMOGLOBIN 31 pg (25-34); MEAN CORPUSCULAR HGB CONC 35 g/dL (32-36); MEAN CORPUSCULAR VOLUME 88 fL (80-99); MEAN PLATELET VOLUME 9.8 fL (9.0-12.2); MONOCYTES # (AUTO) 0.8 10^3/uL (0.0-1.0); MONOCYTES % (AUTO) 8 % (0-12); NEUTROPHILS # (AUTO) 7.4 10^3/uL (1.8-7.8); NEUTROPHILS % (AUTO) 69 % (42-75); PLATELET COUNT 224 10^3/uL (130-400); WHITE BLOOD COUNT 10.7 10^3/uL (4.3-11.0)
[2022-02-02 06:19] LABS: ALBUMIN 2.6 GM/DL (3.2-4.5); BILIRUBIN,TOTAL 0.8 MG/DL (0.1-1.0); CALCIUM 7.5 MG/DL (8.5-10.1); CREATININE SERUM 0.99 MG/DL (0.60-1.30); MAGNESIUM 1.8 MG/DL (1.6-2.4); POTASSIUM 3.1 MMOL/L (3.6-5.0); TOTAL PROTEIN 5.4 GM/DL (6.4-8.2)
[2022-02-02] MEDS: inSUlin ASPART (NovoLOG) 1 UNIT/0.01 ML (CHARGE PER UNIT) SC SCH ×7 (06:37→21:38)
[2022-02-02] MEDS: VANCOMYCIN 1 GM/NS 250 ML IVPB IV SCH ×4 (06:41→17:14)
--- NOTE | 2022-02-02 07:58 | Cardiology Progress Note ---
Subjective Date Seen by Provider: Feb 02, 2022 Time Seen by Provider: 07:10 Subjective/Events-last exam Pt denies CP, SOB, edema, syncope, N/V, and palpitations. He says his condition is "isaiah cheung." Dr. Blair: I am following him due to permanent atrial fibrillation. He was up in the [place] walking today with assistance and felt tired but denies shortness of breath. He denies chest discomfort, palpitations, syncope, or ankle edema. He wants to go home. Certain portions of this document may have been dictated utilizing voice recognition technology. Inherent to this technology, typographical and grammatical errors may exist. As much as I am diligent to identify and correct these mistakes, some errors may remain in the document. Focused Exam Lactate Level 01/30/22 12:15: Lactic Acid Level 3.51*H 01/30/22 14:20: Lactic Acid Level 1.63 Respiratory: Lungs Clear, Normal Breath Sounds, No Accessory Muscle Use, No Respiratory Distress Cardiovascular: Irregularly Irregular, Tachycardia Skin: normal color, warm/dry Objective-Cardiology Exam Last Set of Vital Signs Vital Signs 01/30/22 02/02/22 02/02/22 02/02/22 21:34 04:00 07:37 08:00 Temp 36.7 Pulse 93 Resp 18 B/P (MAP) 132/81 (98) Pulse Ox 97 O2 Delivery Room Air O2 Flow Rate 0.00 0.00 FiO2 21 I&O Intake and Output 02/02/22 00:00 Intake Total 1760 ml Output Total 1700 ml Balance 60 ml Intake Oral 1760 ml Output Urine Total 1700 ml General: Alert, Oriented X3, No Acute Distress HEENT: Atraumatic, EOMI Neck: Supple Lungs: Clear to Auscultation, Normal Air Movement Heart: Other (Chronic AFib) Abdomen: Soft, No Tenderness Extremities: No Edema, No Tenderness/Swelling Skin: No Significant Lesion Neuro: Normal Speech Psych/Mental Status: Other (slightly perturbed about the situation) Other physical findings Dr. Blair: General: Alert. No acute distress. Eye: No xanthelasma. HENT: Normocephalic. Neck: Jugular venous pressure does not appear elevated. Respiratory: Lungs are clear to auscultation. Respirations are non-labored. Breath sounds are equal. Symmetrical chest wall expansion. Cardiovascular: Normal rate. Irregular rhythm. No murmur. No gallop. No edema. Gastrointestinal: Soft. Normal bowel sounds. Skin: Warm. Dry. Neurologic: Alert and oriented to person, place, time. Cranial nerves 3-11 grossly intact. Psychiatric: Cooperative. Appropriate mood & affect. Results Lab Laboratory Tests 02/02/22 05:18 A/P-Cardiology Admission Diagnosis (1) Permanent atrial fibrillation Assessment & Plan: He underwent a previous cardioversion earlier this year but then when he returned to the office a week later, he was in atrial fibrillation with a controlled ventricular rate on diltiazem. He seems to be asymptomatic with the atrial fibrillation. We will continue the renal adjusted dosing of rivaroxaban for stroke prophylaxis. He is on a lower dose of diltiazem than he was taking at home due to some low blood pressures here in the hospital. I had planned to increase this on 02/01 but his blood pressures are still running on the soft side. From a cardiac standpoint, he can be discharged home once his noncardiac issues have improved. (2) Primary hypertension Assessment & Plan: He is currently normotensive. I restarted his oral diltiazem but at 1/2 the dose he was taking at home due to soft blood pressures during this admission. He was also on lisinopril at home which I have held. I would not restart this at the time of discharge or he may get hypotensive at home. (3) Mixed hyperlipidemia Assessment & Plan: Continue statin medication. (4) Acute kidney injury superimposed on chronic kidney disease Assessment & Plan: His renal function improved after receiving IV fluids. (5) Type 2 diabetes mellitus with complication Assessment & Plan: This is being managed by hospitalist. Supervisory-Addendum Brief Verification & Attestation Participated in pt care: history, MDM, physical Personally performed: exam, history, MDM, supervision of care Care discussed with: Medical Student Procedures: n/a Results interpretation: Verified all documentation I independently interviewed and examined the patient and formulated my own impression and plan. I also reviewed the medical student notes. MARTINA OTTO Feb 02, 2022 07:58 JF BLAIR JR, MD Feb 02, 2022 10:25
[2022-02-02] MEDS: DOCUSATE SODIUM 100 MG (COLACE) CAP PO SCH ×2 (09:30→19:49)
[2022-02-02] MEDS: SENNOSIDES 8.6 MG (SENOKOT) TAB PO SCH ×2 (09:30→19:49)
[2022-02-02] MEDS: AZITHROMYCIN 250 MG TAB (ZITHROMAX) PO SCH (09:30)
[2022-02-02] MEDS: dilTIAZem120 MG (CARDIZEM CD) CAP PO SCH (09:30)
--- NOTE | 2022-02-02 09:48 | Physical Therapy Daily Note ---
PT Daily Note-Current Subjective Patient agrees to PT. Pain Section J - Health Conditions 1. Rarely or not at all 2. Occasionally 3. Frequently 4. Almost constantly 8. Unable to answer Pain Effect on Sleep: 1 Pain Interference with Therapy: 1 Pain Interference w/Day-to-Day: 1 Mental Status Patient Orientation: Normal For Age Attachments: IV Transfers SCALE: Activities may be completed with or without assistive devices. 2-Hlrmkblqcr-vzznyca completes the activity by him/herself with no assistance from a helper. 5-Set-up or Clean-up Assistance-helper sets up or cleans up; patient completes activity. [place] assists only prior to or following the activity. 4-Supervision or Touching Assistance-helper provides verbal cues and/or touching/steadying and/or contact guard assistance as patient completes ac tivity. Assistance may be provided throughout the activity or intermittently. 3-Partial/Moderate Assistance-helper does LESS THAN HALF the effort. [place] lifts, holds or supports trunk or limbs, but provides less than half the effort. 2-Substantial/Maximal Assistance-helper does MORE THAN HALF the effort. [place] lifts or holds trunk or limbs and provides more than half the effort. 6-Ylnwgipnv-uqhrjz does ALL the effort. Patient does none of the effort to complete the activity. Or, the assistance of 2 or more helpers is required for the patient to complete the activity. If activity was not attempted, code reason: 7-Patient Refused. 9-Not Applicable-not attempted and the patient did not perform the activity before the current illness, exacerbation or injury. 10-Not Attempted due to Environmental Limitations-(lack of equipment, weather restraints, etc.). 88-Not Attempted due to Medical Conditions or Safety Concerns. Lying to Sitting/Side of Bed(Q: 6 Sit to Stand (QC): 6 Chair/Dmu-ev-Tvomk Xfer(QC): 6 Gait Training Distance: 500' Walk 10 feet (QC): 6 Walk 50 ft with 2 Turns(QC): 6 Walk 150 ft (QC): 6 Gait Assistive Device: FWW safe and functional with no deviation Assessment Patient tolerated treatment well and is up in recliner with needs met. PT to continue to increase activity as patient tolerates PT Wardrobe Attendant Goals Wardrobe Attendant Goals PT [facility] Goals Time Frame: Feb 13, 2022 Roll Left & Right (QC): 6 Sit to Lying (QC): 6 Lying-Sitting on Side/Bed(QC): 6 Sit to Stand (QC): 6 Chair/Zbx-lk-Cowso Xfer(QC): 6 Toilet Transfer (QC): 6 Walk 10 feet (QC): 6 Walk 50ft with 2 Turns (QC): 6 Walk 150 ft (QC): 6 PT Plan Treatment/Plan Treatment Plan: Continue Plan of Care Treatment Plan: Education, Functional Activity Christina, Functional Strength, Gait, Safety, Therapeutic Exercise, Transfers Treatment Duration: Feb 13, 2022 Frequency: 6 times per week Estimated Hrs Per Day: .25 hour per day Patient and/or Family Agrees t: Yes Time Time In: 841 Time Out: 851 DATE: Feb 02, 2022 Total Billed Treatment Time: 10 Total Billed Treatment 1 visit FA 10 min YVETTE RENEE PT Feb 02, 2022 09:48
[2022-02-02] MEDS: cefTRIAXone 1 GM PRE-MIX 50 ML IV SCH (11:27)
--- NOTE | 2022-02-02 12:02 | Progress Note - Hospitalist ---
CHIRAGISAI 02/02/22 1202: Subjective HPI/CC On Admission Date Seen by Provider: Feb 02, 2022 Time Seen by Provider: 10:30 Chief complaint: DKA with A. fib with RVR HPI: This is a 76-year-old male clinic patient of Dr. Mcclain who has a recent 3- month history of hyperglycemia unresolved with oral hypoglycemic medication who presented to the ER with weakness palpitations and was found to have DKA and A. fib with RVR. Patient overall feels weak but his sister reports he looks better than when he was admitted. Cardiology will be consulted. DKA protocol will be followed. Cardizem drip initiated. Subjective/Events-last exam Patient is awake and alert in his bed this morning, at bedside. He reports that he is doing well today and is eager to go home. He reports that he has been up and walking around the halls yesterday with no problems. He reports that he has already been seen by the clinical unit educator and instructed how to give his own insulin shots, however after talking to the RN, this appears to not be the case. Blood cultures grew klebsiella pneumonia and enterococcus faecalis, awaiting sensitivities. Patient has no new complaints. Review of Systems General: No Chills, No Malaise HEENT: No Head Aches, No Visual Changes Pulmonary: No Dyspnea, No Cough Cardiovascular: No: Chest Pain, Palpitations Gastrointestinal: No: Nausea, Vomiting Genitourinary: No Dysuria, No Hematuria Musculoskeletal: No: neck pain, shoulder pain Neurological: No: Weakness, Numbness Focused Exam Lactate Level 01/30/22 14:20: Lactic Acid Level 1.63 Objective Exam Vital Signs Vital Signs Date Time Temp Pulse Resp B/P (MAP) Pulse Ox O2 Delivery O2 Flow Rate FiO2 02/02/22 11:26 36.9 58 105/55 (72) Room Air 02/02/22 07:37 18 97 02/02/22 04:00 0.00 0.00 01/30/22 21:34 21 Capillary Refill : Less Than 3 Seconds General Appearance: No Apparent Distress, WD/WN HEENT: PERRL/EOMI Neck: Non Tender, Supple Respiratory: Chest Non Tender, Lungs Clear Cardiovascular: No Edema, Normal Peripheral Pulses Gastrointestinal: Non Tender, Soft Rectal: Deferred Back: No CVA Tenderness Extremity: Normal Capillary Refill, Non Tender Neurologic/Psychiatric: Alert, Oriented x3 Skin: Normal Color, Warm/Dry Lymphatic: No Adenopathy Results/Procedures Lab Laboratory Tests 02/02/22 05:18 Patient resulted labs reviewed. Assessment/Plan Assessment and Plan Assess & Plan/Chief Complaint Afib with RVR PINA CKD HTN HLD T2DM Hyponatremia Hypokalemia Anemia Dehydration Bacteremia Cardiology consulted Continue dilitiazem BUN and creatinine remain improved Sliding scale insulin Monitor and replace electrolytes as needed. On empiric IV antibiotics, awaiting sensitivities LAKESHA BERRY DO 02/03/22 0534: Subjective Subjective/Events-last exam Patient ready to go home but although he has stated he can give himself insulin injections he has not been trying to do so Supervisory-Addendum Brief Verification & Attestation Participated in pt care: history, MDM, physical Personally performed: exam, history, MDM, supervision of care Care discussed with: Medical Student Procedures: n/a Results interpretation: Verified all documentation Verification and Attestation of Medical Student E/M Service A medical student performed and documented this service in my presence. I reviewed and verified all information documented by the medical student and made modifications to such information, when appropriate. I personally performed the physical exam and medical decision making. Lakesha Berry, Feb 03, 2022,05:34 ISAI BEARD Feb 02, 2022 12:02 LAKESHA BERRY DO Feb 03, 2022 05:34
[2022-02-02] MEDS ORDERED: dilTIAZem120 MG (CARDIZEM CD) CAP PO NR (15:30)
[2022-02-02] MEDS: RIVAROXABAN 15 MG TABLET (XARELTO) PO SCH (15:50)
--- NOTE | 2022-02-02 17:23 | Physician Query Clarification ---
Physician Query-General Query to Physician: The medical record reflects the following clinical scenario: History/Risk factors: Advanced age, DM Clinical Findings: Admission VS/Labs: HR 127, RR 25, BP 130/87, SpO2 97% sat on room air T 36.1, WBC 17.6, lactic acid 2.84, Blood Cultures X 2 positive for Klebsiella Pneumoniae and Enterococcus Faecalis, Treatment: ER: Normal saline 500 mL bolus x 2, Ceftriaxone IV, nor epi, normal saline 1 L, Half-normal saline 1 L, D5 half-normal saline 1 L, Question: Is Sepsis a clinically valid diagnosis? Sepsis was documented in the H and P and the first progress note with no further documentation of Sepsis in the medical record. If yes, please document in the Progress Notes and Discharge Summary. 1. Yes, Sepsis is clinically valid, present on admission and condition resolving 2. No, Sepsis ruled out 3. Other, with explanation of clinical findings 4. Undetermined, no explanation for clinical findings In responding to this query, please exercise your independent professional judgment. The purpose of this communication is to more accurately reflect the complexity of your patients condition. The fact that a question is asked does not imply that any particular answer is desired or expected. Thank you for your timely response to this clarification. Marley [place] MSN, RN Clinical Air Cargo Agent [email or web address] PHYSICIAN RESPONSE: Based on the clinical findings in the record, please respond to the query above on this document as an addendum. Physician Response: Physician Response 1 If you have questions please contact: Controls Technician: Ext: Thank you for your time and cooperation. Clinical Air Cargo Agent/Controls Technician This is a permanent part of the medical record MARLEY [place] Feb 02, 2022 17:23 R[place] BERRY DO Feb 02, 2022 20:09
[2022-02-03 03:05] VITALS: BP 102/67
[2022-02-03] MEDS: VANCOMYCIN 1 GM/NS 250 ML IVPB IV SCH ×2 (05:24)
[2022-02-03 05:31] LABS: BASOPHILS % (AUTO) 0 % (0-10); EOSINOPHILS # (AUTO) 0.1 10^3/uL (0.0-0.3); EOSINOPHILS % (AUTO) 1 % (0-10); HEMATOCRIT 33 % (40-54); HEMOGLOBIN 11.6 g/dL (13.3-17.7); LYMPHOCYTES # (AUTO) 2.6 10^3/uL (1.0-4.0); LYMPHOCYTES % (AUTO) 23 % (12-44); MEAN CORPUSCULAR HEMOGLOBIN 31 pg (25-34); MEAN CORPUSCULAR HGB CONC 35 g/dL (32-36); MEAN CORPUSCULAR VOLUME 88 fL (80-99); MEAN PLATELET VOLUME 9.4 fL (9.0-12.2); MONOCYTES # (AUTO) 0.6 10^3/uL (0.0-1.0); MONOCYTES % (AUTO) 6 % (0-12); NEUTROPHILS % (AUTO) 70 % (42-75); PLATELET COUNT 230 10^3/uL (130-400); WHITE BLOOD COUNT 11.5 10^3/uL (4.3-11.0)
[2022-02-03 06:00] LABS: ALBUMIN 2.5 GM/DL (3.2-4.5); BILIRUBIN,TOTAL 0.8 MG/DL (0.1-1.0); CALCIUM 7.9 MG/DL (8.5-10.1); CREATININE SERUM 1.06 MG/DL (0.60-1.30); MAGNESIUM 1.8 MG/DL (1.6-2.4); TOTAL PROTEIN 5.3 GM/DL (6.4-8.2)
[2022-02-03] MEDS: inSUlin ASPART (NovoLOG) 1 UNIT/0.01 ML (CHARGE PER UNIT) SC SCH ×4 (06:00→13:39)
[2022-02-03 07:41] VITALS: BP 102/65
[2022-02-03] MEDS: DOCUSATE SODIUM 100 MG (COLACE) CAP PO SCH (08:18)
[2022-02-03] MEDS: AZITHROMYCIN 250 MG TAB (ZITHROMAX) PO SCH (08:18)
[2022-02-03] MEDS: SENNOSIDES 8.6 MG (SENOKOT) TAB PO SCH (08:18)
--- NOTE | 2022-02-03 08:18 | Cardiology Progress Note ---
Subjective Date Seen by Provider: Feb 03, 2022 Time Seen by Provider: 07:35 Subjective/Events-last exam Pt requests discharge home today; reports being aggravated with repetitive questioning. Denies chest pain, SOB, pedal edema, palpitations, and syncope this a.m. Dr. Blair: I am following him due to permanent atrial fibrillation. He wants to go home. He denies chest discomfort, dyspnea, palpitations, syncope, or ankle edema. Certain portions of this document may have been dictated utilizing voice recognition technology. Inherent to this technology, typographical and grammatical errors may exist. As much as I am diligent to identify and correct these mistakes, some errors may remain in the document. Focused Exam Respiratory: Lungs Clear, Normal Breath Sounds, No Accessory Muscle Use, No Respiratory Distress Cardiovascular: No Murmur, Irregularly Irregular Skin: normal color, warm/dry Objective-Cardiology Exam Last Set of Vital Signs Vital Signs 01/30/22 02/02/22 02/03/22 21:34 04:00 11:26 Temp 36.6 Pulse 75 Resp 18 B/P (MAP) 105/66 (79) Pulse Ox 97 O2 Delivery Room Air O2 Flow Rate 0.00 0.00 FiO2 21 I&O Intake and Output 02/03/22 00:00 Intake Total 1830 ml Output Total 1000 ml Balance 830 ml Intake Oral 1830 ml Output Urine Total 1000 ml # Voids 5 General: Alert, Oriented X3, No Acute Distress HEENT: Atraumatic, EOMI Neck: Supple Lungs: Clear to Auscultation, Normal Air Movement Heart: Other (Chronic AFib) Abdomen: Soft, No Tenderness Extremities: No Edema, No Tenderness/Swelling Skin: No Significant Lesion Neuro: Normal Speech Psych/Mental Status: Other (anxious for discharge) Other physical findings Dr. Blair: General: Alert. No acute distress. Eye: No xanthelasma. HENT: Normocephalic. Neck: Jugular venous pressure does not appear elevated. Respiratory: Lungs have slight crackles at the left base, otherwise clear. Respirations are non-labored. Breath sounds are equal. Symmetrical chest wall expansion. Cardiovascular: Normal rate. Irregular rhythm. No murmur. No gallop. No edema. Gastrointestinal: Soft. Normal bowel sounds. Skin: Warm. Dry. Neurologic: Alert and oriented to person, place, time. Cranial nerves 3-11 grossly intact. Psychiatric: Cooperative. Appropriate mood & affect. Results Lab Laboratory Tests 02/03/22 05:28 A/P-Cardiology Admission Diagnosis (1) Permanent atrial fibrillation Assessment & Plan: He underwent a previous cardioversion earlier this year but then when he returned to the office a week later, he was in atrial fibrillation with a controlled ventricular rate on diltiazem. He seems to be asymptomatic with the atrial fibrillation. We will continue the renal adjusted dosing of rivaroxaban for stroke prophylaxis. He was on a lower dose of diltiazem than he was taking at home due to some low blood pressures here in the hospital. I increased his diltiazem back to 240 mg daily on 02/02. This is the dose he was taking at home. His heart rates improved. From a cardiac standpoint, he can be discharged home once his noncardiac issues have improved. (2) Primary hypertension Assessment & Plan: I restarted his oral diltiazem but at 1/2 the dose he was taking at home due to soft blood pressures during this admission. I increased the dose on 02/01 to persistent tachycardia. He was also on lisinopril at home which I have held. (3) Mixed hyperlipidemia Assessment & Plan: Continue statin medication. (4) Acute kidney injury superimposed on chronic kidney disease Assessment & Plan: His renal function improved after receiving IV fluids. (5) Type 2 diabetes mellitus with complication Assessment & Plan: This is being managed by hospitalist. Diagnosis/Problems Diagnosis/Problems (1) Permanent atrial fibrillation Assessment & Plan: He underwent a previous cardioversion earlier this year but then when he returned to the office a week later, he was in atrial fibrillation with a controlled ventricular rate on diltiazem. He seems to be asymptomatic with the atrial fibrillation. I have restarted his oral diltiazem but at a slightly lower dose than what he was taking at home because his blood pressures were somewhat soft here in the hospital. We will continue the renal adjusted dosing of rivaroxaban for stroke prophylaxis. BP has improved, I will increase his dose of diltiazem to his previous home dose. (2) Primary hypertension Assessment & Plan: He is currently normotensive. I restarted his oral diltiazem but at 1/2 the dose he was taking at home due to soft blood pressures during this admission. He was also on lisinopril at home which I have held. (3) Mixed hyperlipidemia Assessment & Plan: Continue statin medication. (4) Acute kidney injury superimposed on chronic kidney disease Assessment & Plan: His renal function improved after receiving IV fluids. (5) Type 2 diabetes mellitus with complication Assessment & Plan: This is being managed by hospitalist. Supervisory-Addendum Brief Verification & Attestation Participated in pt care: history, MDM, physical Personally performed: exam, history, MDM Care discussed with: Medical Student Procedures: n/a Results interpretation: Verified all documentation I independently performed my own history and physical and physical examination. I formulated my own impression and plan. I also reviewed the documentation of the medical student. MARTINA OTTO Feb 03, 2022 08:18 JF BLAIR JR, MD Feb 03, 2022 10:13
[2022-02-03] MEDS ORDERED: dilTIAZem120 MG (CARDIZEM CD) CAP PO SCH (09:00)
--- NOTE | 2022-02-03 10:50 | Physical Therapy Daily Note ---
PT Daily Note-Current Subjective Patient in bed pre-tx, reports no pain, agrees to PT. Pain Section J - Health Conditions 1. Rarely or not at all 2. Occasionally 3. Frequently 4. Almost constantly 8. Unable to answer Pain Effect on Sleep: 1 Pain Interference with Therapy: 1 Pain Interference w/Day-to-Day: 1 Appearance Patient in recliner with nurse call, tray, phone, social services assistant in room, family in room, all needs met. Mental Status Patient Orientation: Person, Place, Situation Transfers SCALE: Activities may be completed with or without assistive devices. 8-Zyxjxivbvu-hadyuyu completes the activity by him/herself with no assistance from a helper. 5-Set-up or Clean-up Assistance-helper sets up or cleans up; patient completes activity. Olyphant assists only prior to or following the activity. 4-Supervision or Touching Assistance-helper provides verbal cues and/or touching/steadying and/or contact guard assistance as patient completes activity. Assistance may be provided throughout the activity or intermittently. 3-Partial/Moderate Assistance-helper does LESS THAN HALF the effort. Olyphant lifts, holds or supports trunk or limbs, but provides less than half the effort. 2-Substantial/Maximal Assistance-helper does MORE THAN HALF the effort. Olyphant lifts or holds trunk or limbs and provides more than half the effort. 8-Rimfuulvl-bggiwd does ALL the effort. Patient does none of the effort to complete the activity. Or, the assistance of 2 or more helpers is required for the patient to complete the activity. If activity was not attempted, code reason: 7-Patient Refused. 9-Not Applicable-not attempted and the patient did not perform the activity before the current illness, exacerbation or injury. 10-Not Attempted due to Environmental Limitations-(lack of equipment, weather restraints, etc.). 88-Not Attempted due to Medical Conditions or Safety Concerns. Roll Left & Right (QC): 6 Sit to Lying (QC): 6 Sit to Stand (QC): 4 Chair/Xed-kp-Jtrgb Xfer(QC): 4 independent with bed mobility, SBA for fkt-ha-ehyvo Weight Bearing Right Lower Extremity: Right Full Weight Bearing Left Lower Extremity: Left Full Weight Bearing Gait Training Does the Patient Walk?: Yes Distance: 300' Walk 10 feet (QC): 4 Walk 50 ft with 2 Turns(QC): 4 Walk 150 ft (QC): 4 Gait Persons Needed: 1 Gait Assistive Device: FWW CGA, Patient walks with good gait speed, step length, foot clearance, but is unsteady at times, had one LOB but was able to recover quickly without therapist assist. Exercises Seated Therapy Exercises: Ankle pumps, Long arc quads, Hip flexion Seated Reps: 10 Treatments Ambulation, LE Strengthening Assessment Current Status: Fair Progress Patient independent with bed mobility, but is unsteady with ambulation at times. Patient had a LOB episode but self-corrected. PT Skilled Nursing Goals [employer] Manager Goals PT Skilled Nursing Goals Time Frame: Feb 13, 2022 Roll Left & Right (QC): 6 Sit to Lying (QC): 6 Lying-Sitting on Side/Bed(QC): 6 Sit to Stand (QC): 6 Chair/Lsd-yg-Alugh Xfer(QC): 6 Toilet Transfer (QC): 6 Walk 10 feet (QC): 6 Walk 50ft with 2 Turns (QC): 6 Walk 150 ft (QC): 6 PT Plan Problem List Problem List: Activity Tolerance, Functional Strength, Safety, Balance, Gait, Transfer, ROM Treatment/Plan Treatment Plan: Continue Plan of Care Treatment Plan: Education, Functional Activity Christina, Functional Strength, Gait, Safety, Therapeutic Exercise, Transfers Treatment Duration: Feb 13, 2022 Frequency: 6 times per week Estimated Hrs Per Day: .25 hour per day Patient and/or Family Agrees t: Yes Safety Risks/Education Patient Education: Gait Training, Transfer Techniques, Correct Positioning, S afety Issues Teaching Recipient: Patient Teaching Methods: Demonstration, Discussion Response to Teaching: Reinforcement Needed Time Time In: 1029 Time Out: 1040 DATE: Feb 03, 2022 Total Billed Treatment Time: 11 Total Billed Treatment 1 visit FA 11min MANE GOLDBERG PT Feb 03, 2022 10:50
[2022-02-03 11:26] VITALS: BP 105/66
--- NOTE | 2022-02-03 11:39 | Progress Note ---
ISAI BEARD 02/03/22 1139: Progress Note Patient is a 76-year-old male with a history of afib, HTN, HLD, T2DM, and CKD and a patient of Dr. Mcclain that presented to the ED on 01/30 with complaint of a sore throat, subjective fever, malaise, and weakness. The patient states that they had been having these symptoms for approximately a week before admission, but they had begun to worsen over the last few days. The patient states that they had not been able to eat or drink much for a few days prior to admission due to his sore throat. On admission, he was found to be in afib with RVR and was found to be in DKA. Cardiology was consulted and the patient was placed on diltiazem and started on DKA protocol. The patient's BUN and creatinine were elevated on admission at 37 and 2.10 which improved with IV fluids and has continued to improve over the course of his stay, currently they are 9 and 1.06. The patient was started on rocephin after admission, vancomycin and azithromycin were added the next day. Blood cultures grew Klebsiella pneumonia with a resistance to ampicillin and Enterococcus faecalis. The patient had some confusion and AMS on admission that resolved within a couple days of admission. The patient had a few episodes of tachysystole during their stay and remained in afib with RVR but had no symptoms. The dosage of diltiazem had been reduced during their stay due to some soft BP readings, but was increased due to these episodes. The patient's symptoms improved throughout the course of his stay, and he feels that he is back to his baseline. He is being prepared for discharge later today with insulin. Diabetes education will see the patient before discharge to demonstrate how to administer insulin to himself. He lives with his sister who states she is also able to give his insulin injections. LAKESHA GUAJARDO DO 02/04/22 0551: Supervisory-Addendum Brief Verification & Attestation Participated in pt care: history, MDM, physical Personally performed: exam, history, MDM, supervision of care Care discussed with: Medical Student Procedures: n/a Results interpretation: Verified all documentation Verification and Attestation of Medical Student E/M Service A medical student performed and documented this service in my presence. I reviewed and verified all information documented by the medical student and made modifications to such information, when appropriate. I personally performed the physical exam and medical decision making. Lakesha Guajardo, Feb 04, 2022,05:51 ISAI BEARD Feb 03, 2022 11:39 LAKESHA GUAJARDO DO Feb 04, 2022 05:51
[2022-02-03] MEDS ORDERED: INSU100I29 SQ (12:00)
[2022-02-03] MEDS ORDERED: LACT1CAP57 PO (12:00)
[2022-02-03] MEDS ORDERED: NEED-474 MC (12:00)
[2022-02-03] MEDS ORDERED: INSU100I14 SQ (12:00)
[2022-02-03] MEDS ORDERED: AMOX1TAB12 PO (12:00)
--- NOTE | 2022-02-03 12:03 | Discharge Summary ---
Discharge Summary Hospital Course Was the Problem List Reviewed?: Yes Problems/Dx: (1) Permanent atrial fibrillation (2) Primary hypertension (3) Mixed hyperlipidemia (4) Acute kidney injury superimposed on chronic kidney disease (5) Type 2 diabetes mellitus with complication Hospital Course Date of Admission: Jan 30, 2022 at 11:33 Admission Diagnosis : Family Physician/Provider: Fadumo Mcclain MD Date of Discharge: 02/03/22 Discharge Diagnosis: [ ] Hospital Course: Patient is a 76-year-old male with a history of afib, HTN, HLD, T2DM, and CKD and a patient of Dr. Mcclain that presented to the ED on 01/30 with complaint of a sore throat, subjective fever, malaise, and weakness. The patient states that they had been having these symptoms for approximately a week before admission, but they had begun to worsen over the last few days. The patient states that they had not been able to eat or drink much for a few days prior to admission due to his sore throat. On admission, he was found to be in afib with RVR and was found to be in DKA. Cardiology was consulted and the patient was placed on diltiazem and started on DKA protocol. The patient's BUN and creatinine were elevated on admission at 37 and 2.10 which improved with IV fluids and has continued to improve over the course of his stay, currently they are 9 and 1.06. The patient was started on rocephin after admission, vancomycin and azithromycin were added the next day. Blood cultures grew Klebsiella pneumonia with a resistance to ampicillin and Enterococcus faecalis. The patient had some confusion and AMS on admission that resolved within a couple days of admission. The patient had a few episodes of tachysystole during their stay and remained in afib with RVR but had no symptoms. The dosage of diltiazem had been reduced during their stay due to some soft BP readings, but was increased due to these episodes. The patient's symptoms improved throughout the course of his stay, and he feels that he is back to his baseline. He is being prepared for discharge later today with insulin. Diabetes education will see the patient before discharge to demonstrate how to administer insulin to himself. He lives with his sister who states she is also able to give his insulin injections. ISAI BEARD Labs and Pending Lab Test: Laboratory Tests 02/02/22 15:31: Glucometer 54*L 02/02/22 15:53: Glucometer 59*L 02/02/22 16:37: Glucometer 76 02/02/22 20:07: Glucometer 174H 02/03/22 05:28: White Blood Count 11.5H, Red Blood Count 3.72L, Hemoglobin 11.6L, Hematocrit 33L , Mean Corpuscular Volume 88, Mean Corpuscular Hemoglobin 31, Mean Corpuscular Hemoglobin Concent 35, Red Cell Distribution Width 14.2, Platelet Count 230, Mean Platelet Volume 9.4, Immature Granulocyte % (Auto) 1, Neutrophils (%) (Auto) 70, Lymphocytes (%) (Auto) 23, Monocytes (%) (Auto) 6, Eosinophils (%) (Auto) 1, Basophils (%) (Auto) 0, Neutrophils # (Auto) 8.0H, Lymphocytes # (Auto) 2.6, Monocytes # (Auto) 0.6, Eosinophils # (Auto) 0.1, Basophils # (Auto) 0.0, Immature Granulocyte # (Auto) 0.1, Sodium Level 133L, Potassium Level 3.0L, Chloride Level 106, Carbon Dioxide Level 17L, Anion Gap 10, Blood Urea Nitrogen 9, Creatinine 1.06, Estimat Glomerular Filtration Rate 72, BUN/Creatinine Ratio 8, Glucose Level 83, Calcium Level 7.9L, Corrected Calcium 9.1, Magnesium Level 1.8, Total Bilirubin 0.8, Aspartate Amino Transf (AST/SGOT) 118H, Alanine Aminotransferase (ALT/SGPT) 110H, Alkaline Phosphatase 149H, Total Protein 5.3L, Albumin 2.5L 02/03/22 11:14: Glucometer 111H Microbiology 01/30/22 Throat Culture - Final, Complete No Beta Strep isolated 01/30/22 Blood Culture - Final, Complete Klebsiella pneumoniae Enterococcus faecalis Home Meds Active Probiotic & Acidophilus Cap (Lactobac Cmb #3/Fos/Pantethine) 300MM-250 Capsule 1 Each PO TID Amox Tr-K Clv 875-125 mg Tab (Amoxicillin/Potassium Clav) 875 Mg-125 Mg Tablet 1 Each PO BID Advocate Pen Oatman (Oatman, Insulin Disposable) 31 Gauge X 5/16" Dis.needle Each ACHS Novolog Flexpen (Insulin Aspart) 100 Unit/Ml (3 Ml) Solution 5 Units SQ AC hold insulin if sugar is less than 130 Levemir Flextouch (Insulin Detemir) 100 Unit/Ml (3 Ml) Insuln.pen 12 Unit SQ BID hold if sugar is less than 130 Reported Glipizide 10 Mg Tablet 10 Mg PO BID Xarelto (Rivaroxaban) 15 Mg Tablet 15 Mg PO W/ DINNER Simvastatin 10 Mg Tablet 10 Mg PO HS Lisinopril 5 Mg Tablet 5 Mg PO DAILY Hydrochlorothiazide 25 Mg Tablet 25 Mg PO DAILY Diltiazem 24Hr ER (Diltiazem HCl) 240 Mg Cap.er.24h 240 Mg PO DAILY Amlodipine Besylate 10 Mg Tablet 10 Mg PO DAILY Assessment/Pt Instructions PCP in 1 week Discharge Planning: <30 minutes discharge planning Discharge Instructions Discharge Diet: ADA Diet Discharge Physical Examination Vital Signs Vital Signs Date Time Temp Pulse Resp B/P (MAP) Pulse Ox O2 Delivery O2 Flow Rate FiO2 02/03/22 11:26 36.6 75 18 105/66 (79) 97 Room Air 02/02/22 04:00 0.00 0.00 01/30/22 21:34 21 General Appearance: No Apparent Distress, WD/WN, Chronically ill Respiratory: Lungs Clear Cardiovascular: Regular Rate, Rhythm Neurologic/Psychiatric: Alert, Oriented x3, No Motor/Sensory Deficits, Normal Mood/Affect Allergies: Coded Allergies: No Known Drug Allergies (Unverified , 04/03/12) Discharge Summary Date of Admission Jan 30, 2022 at 11:33 Date of Discharge Discharge Date: Feb 03, 2022 Admission Diagnosis Assessment: DKA new onset A. fib with RVR Subjective fever with suspicion of pneumonia Sepsis Lactic acidosis likely from Metformin Known history of atrial fibrillation Acute kidney injury Dehydration Plan: DKA protocol Cardiology consult Cardizem drip IV fluids IV antibiotics empirically Discharge Diagnosis Continue IV antibiotics (1) Permanent atrial fibrillation Assessment & Plan: He underwent a previous cardioversion earlier this year but then when he returned to the office a week later, he was in atrial fibrillation with a controlled ventricular rate on diltiazem. He seems to be asymptomatic with the atrial fibrillation. We will continue the renal adjusted dosing of rivaroxaban for stroke prophylaxis. He is on a lower dose of diltiazem than he was taking at home due to some low blood pressures here in the hospital. I had planned to increase this on 02/01 but his blood pressures are still running on the soft side. From a cardiac standpoint, he can be discharged home once his noncardiac issues have improved. (2) Primary hypertension Assessment & Plan: I restarted his oral diltiazem but at 1/2 the dose he was taking at home due to soft blood pressures during this admission. He was also on lisinopril at home which I have held. (3) Mixed hyperlipidemia Assessment & Plan: Continue statin medication. (4) Acute kidney injury superimposed on chronic kidney disease Assessment & Plan: His renal function improved after receiving IV fluids. (5) Type 2 diabetes mellitus with complication Assessment & Plan: This is being managed by hospitalist. RENO BERRY DO Feb 03, 2022 12:03
[2022-02-03] MEDS: cefTRIAXone 1 GM PRE-MIX 50 ML IV SCH (13:44)
[2022-02-03 15:31] VITALS: BP 110/70
== END 2022-02-03 15:25 | disposition home or self-care (01) | DRG 871 ==
LOC: EDUNIT# 09:05 → ER 09:07 → ICU 11:33 → 4TH 01-31 13:47
PROVIDERS: ADMIT Internal Medicine; ATTEND Internal Medicine
DX: A41.9 Sepsis, unspecified organism (principal); E11.10 Type 2 diabetes mellitus with ketoacidosis without coma; J18.9 Pneumonia, unspecified organism; I48.21 Permanent atrial fibrillation; N17.9 Acute kidney failure, unspecified; E87.1 Hypo-osmolality and hyponatremia; I12.9 Hypertensive chronic kidney disease with stage 1 through stage 4 chronic kidney disease, or unspecified chronic kidney disease; B96.1 Klebsiella pneumoniae [K. pneumoniae] as the cause of diseases classified elsewhere; E11.22 Type 2 diabetes mellitus with diabetic chronic kidney disease; N18.9 Chronic kidney disease, unspecified; E78.2 Mixed hyperlipidemia; Z20.822 Contact with and (suspected) exposure to COVID-19; T38.3X5A Adverse effect of insulin and oral hypoglycemic [antidiabetic] drugs, initial encounter; E86.0 Dehydration; E87.6 Hypokalemia; D64.9 Anemia, unspecified; Z87.891 Personal history of nicotine dependence; Z79.84 Long term (current) use of oral hypoglycemic drugs; Z79.01 Long term (current) use of anticoagulants; Z79.899 Other long term (current) drug therapy
CPT/HCPCS: 36415; 71045; 80048; 80053; 80202; 81000; 82010; 82947; 83036; 83605; 83735; 84100; 84484; 85007; 85025; 85027; 87040; 87077; 87186; 87430; 87636; 93005; 94640; 94760; 96361; 96365